=== PATIENT | female | born 1935 | race Caucasian/White ===

== ENCOUNTER 2016-06-21 15:59 | Emergency (ER) | payer OTHER, MEDICAID ==
[2016-05-10 14:12] VITALS: Ht 165.1 cm; Wt 72.6 kg
[~2016-06-21] VITALS: Ht 165.1 cm; Wt 72.6 kg
[~2016-06-21 15:59] MED LIST: CARV3.1246 PO; DIPH25CA83 PO; DULO60CA41 PO; FOLI-59 PO; GABA-531 PO; HYDR50TA3 PO; LETR2.5T3 PO; LEVO75TA7 PO; LISI-600 PO; LOP600 PO; MEMA5TAB PO; OSEL75CA PO; POTA10TA79 PO; SERT50TA12 PO
[2016-06-21 16:00] VITALS: BP 156/90; PULSE 79; RESP 19; TEMP 98.2; O2SAT 95
[2016-06-21] MEDS ORDERED: ACET-2165 PO (16:11)
[2016-06-21 16:44] LABS: BASOPHILS % (AUTO) 0.8 % (0.0-2.0); EOSINOPHILS # (AUTO) 0.2 K/uL (0.0-0.4); EOSINOPHILS % (AUTO) 3.6 % (0.0-4.0); HEMATOCRIT 38.3 % (36-48); LYMPHOCYTES # (AUTO) 0.8 K/uL (1.0-5.5); LYMPHOCYTES % (AUTO) 15.8 % (20.5-51.5); MEAN CORPUSCULAR HEMOGLOBIN 30 pg (27-31); MEAN CORPUSCULAR HGB CONC 34 % (32-36); MEAN CORPUSCULAR VOLUME 88 fL (79.0-98.0); MONOCYTES # (AUTO) 0.7 K/uL (0.0-1.0); MONOCYTES % (AUTO) 13.2 % (1.7-9.3); NEUTROPHILS # (AUTO) 3.5 K/uL (1.8-7.7); NEUTROPHILS % (AUTO) 66.6 % (40.0-70.0); PLATELET COUNT (AUTO) 202 K/uL (130-430); RED BLOOD CELL COUNT(AUTO) 4.36 MIL/uL (4.2-6.2); RED CELL DISTRIBUTION WIDTH 14.1 % (9.0-15.0); WHITE BLOOD COUNT (AUTO) 5.2 K/uL (4.8-10.8)
[2016-06-21 16:50] LABS: ANION GAP 8 (5-15); CALCIUM 9.7 mg/dL (8.4-11.0); CHLORIDE 104 mmol/L (98-107); CREATININE 1.02 mg/dL (0.55-1.30); GLUCOSE 95 mg/dL (70-99); POTASSIUM 3.9 mmol/L (3.5-5.1); SODIUM SERUM 141 mmol/L (136-145); UREA NITROGEN, BLOOD 36 mg/dL (8-21)
[2016-06-21 16:55] LABS: ALANINE AMINOTRANSFERASE 24 U/L (12-78); ALBUMIN 4.2 g/dL (3.4-4.8); ASPARTATE AMINOTRANSFERASE 18 U/L (10-37); TOTAL BILIRUBIN 0.5 mg/dL (0.0-1.0); TOTAL PROTEIN, SERUM 8.3 g/dL (6.4-8.3)
[2016-06-21 17:25] VITALS: BP 133/78; PULSE 72; RESP 16; TEMP 98.1; O2SAT 96
== END 2016-06-21 17:25 | disposition home or self-care (01) ==
LOC: SED 15:59
DX: R07.9 Chest pain, unspecified (principal); I10 Essential (primary) hypertension; C50.919 Malignant neoplasm of unspecified site of unspecified female breast; Z79.899 Other long term (current) drug therapy; Z86.59 Personal history of other mental and behavioral disorders
CPT/HCPCS: 36415; 80053; 83880; 84484; 85025; 93005; 99285

== ENCOUNTER 2019-05-09 09:18 | Emergency (ER) | payer OTHER, MEDICAID ==
[~2019-05-09] VITALS: Ht 172.7 cm; Wt 72.6 kg
[~2019-05-09 09:18] MED LIST changes: +ACET-2165 PO; -DIPH25CA83 PO; +FEM2.5 PO; -HYDR50TA3 PO; -LETR2.5T3 PO; -OSEL75CA PO; +POTA10TA11 PO; -POTA10TA79 PO
--- NOTE | 2019-05-09 09:18 | NUR ---
Patient to ER bed 2 to gown for evaluation. Side rails up. Assumed care.
[2019-05-09 09:20] VITALS: BP_SYST 134
--- NOTE | 2019-05-09 09:20 | NUR ---
Patient transported to radiology via hospital bed, accompanied by radiology specialist.
--- NOTE | 2019-05-09 09:25 | NUR ---
Returns to ER department from radiology. Placed on rehabilitation consultant, blood pressure machine and pulse oximeter.
--- NOTE | 2019-05-09 09:30 | NUR ---
Patient brought in by EMS s/p mechanical fall. No KO. Patient AAOx4, states that she was getting up from bed and slipped on the rug, causing her to lose her balance and hit her head on the dresser. Patient does not remember how long she was down for, but states that a nurse happened to walk by her room and found her. Bruising noted under left eye and large bump above right eye. Patient has history of breast cancer and hysterectomy. Patient denies any pain or SOB. No signs or symptoms of acute distress noted. Respirations even and unlabored.
--- NOTE | 2019-05-09 09:59 | NUR ---
ER Dr. Callahan at bedside examining patient.
--- NOTE | 2019-05-09 10:15 | NUR ---
Assisted patient to use bedpan.
--- NOTE | 2019-05-09 11:42 | NUR ---
Patient resting in bed, denies any SOB or pain. No signs or symptoms of acute distress noted.
[2019-05-09 12:17] VITALS: BP_SYST 141
--- NOTE | 2019-05-09 12:17 | NUR ---
Patient given written and verbal discharge instructions and verbalizes understanding. ER MD discussed with patient the results and treatment provided. Patient in stable condition. ID arm band removed. Rx of Naprosyn given. Patient educated on pain management and to follow up with PMD. Pain Scale 0/10. Opportunity for questions provided and answered. Medication side effect fact sheet provided.
== END 2019-05-09 12:17 | disposition home or self-care (01) ==
LOC: SED 09:18
DX: S05.12XA Contusion of eyeball and orbital tissues, left eye, initial encounter (principal); I10 Essential (primary) hypertension; Z79.899 Other long term (current) drug therapy; W01.10XA Fall on same level from slipping, tripping and stumbling with subsequent striking against unspecified object, initial encounter; Y93.89 Activity, other specified; Y92.89 Other specified places as the place of occurrence of the external cause; Y99.8 Other external cause status
CPT/HCPCS: 70450-TC; 99284

== ENCOUNTER 2020-10-08 22:57 | Inpatient (IN) | payer OTHER, MEDICAID, SELFPAY ==
[~2020-10-08] VITALS: Ht 172.7 cm; Wt 59.4 kg
[~2020-10-08 22:57] MED LIST changes: -ACET-2165 PO; +ACET-2634 PO; +ATOR20TA64 PO; +CARV12.548 PO; -CARV3.1246 PO; +CAT.1 PO; +DIA250 PO; +DIVA-74 PO; +DONE10TA44 PO; +FERR-69 PO; -FOLI-59 PO; -GABA-531 PO; -LISI-600 PO; +LISI20TA30 PO; -LOP600 PO; +MEMA14CA5 PO; -MEMA5TAB PO; +MULT-1164 PO; +NEOM3.5O10 LEFT EYE; +ONDA4TAB5 PO; -POTA10TA11 PO; +SER100 PO; +SERT-436 PO; -SERT50TA12 PO; +TIMO5DRO15 LEFT EYE; +XALEYE LEFT EYE
[2020-10-08 23:05] VITALS: BP_SYST 153
[2020-10-09 00:22] LABS: BASOPHILS % (AUTO) 0.7 % (0.0-2.0); EOSINOPHILS # (AUTO) 0.2 K/uL (0.0-0.4); EOSINOPHILS % (AUTO) 3.1 % (0.0-4.0); HEMATOCRIT 37.3 % (36-48); HEMOGLOBIN 12.4 g/dL (12.0-16.0); LYMPHOCYTES % (AUTO) 19.6 % (20.5-51.5); MEAN CORPUSCULAR HEMOGLOBIN 31 pg (27-31); MEAN CORPUSCULAR HGB CONC 33 % (32-36); MEAN CORPUSCULAR VOLUME 93 fL (79.0-98.0); MONOCYTES # (AUTO) 0.5 K/uL (0.0-1.0); MONOCYTES % (AUTO) 10.4 % (1.7-9.3); NEUTROPHILS # (AUTO) 3.5 K/uL (1.8-7.7); NEUTROPHILS % (AUTO) 66.2 % (40.0-70.0); PLATELET COUNT (AUTO) 125 K/uL (130-430); RED BLOOD CELL COUNT(AUTO) 4.02 MIL/uL (4.2-6.2); RED CELL DISTRIBUTION WIDTH 13.6 % (9.0-15.0); WHITE BLOOD COUNT (AUTO) 5.3 K/uL (4.8-10.8)
[2020-10-09 00:41] LABS: ANION GAP 12 (5-15); CALCIUM 9.3 mg/dL (8.4-11.0); CHLORIDE 111 mmol/L (98-107); GLUCOSE 113 mg/dL (70-99); SODIUM SERUM 145 mmol/L (136-145); UREA NITROGEN, BLOOD 17 mg/dL (8-21)
[2020-10-09] MEDS ORDERED: POTASSIUM CHLORIDE 20 MEQ TAB.PRT.SR ONE (00:51)
[2020-10-09 00:54] LABS: ALANINE AMINOTRANSFERASE 20 U/L (12-78); ALBUMIN 3.6 g/dL (3.4-4.8); ASPARTATE AMINOTRANSFERASE 12 U/L (10-37); TOTAL BILIRUBIN 0.2 mg/dL (0.0-1.0)
[2020-10-09 00:55] LABS: POTASSIUM 2.9 mmol/L (3.5-5.1)
[2020-10-09] MEDS ORDERED: POTASSIUM CHLORIDE 20 MEQ TAB.PRT.SR PO ONE (01:00)
[2020-10-09 01:07] LABS: BILIRUBIN,URINE NEGATIVE (NEGATIVE); BLOOD, URINE NEGATIVE (NEGATIVE); CLARITY/URINE SL CLOUDY (CLEAR); COLOR,URINE YELLOW (YELLOW); GLUCOSE,URINE NEGATIVE (NEGATIVE); KETONES,URINE NEGATIVE (NEGATIVE); LEUKOCYTE ESTERASE ,URINE NEGATIVE (NEGATIVE); NITRITE, URINE NEGATIVE (NEGATIVE); PROTEIN URINE NEGATIVE (NEGATIVE)
[2020-10-09] MEDS ORDERED: SERT-131 PO (03:34)
[2020-10-09] MEDS ORDERED: QUET400T54 PO (03:34)
[2020-10-09] MEDS ORDERED: CHOL500013 PO (03:34)
[2020-10-09] MEDS ORDERED: DOCU-156 PO (03:34)
[2020-10-09] MEDS ORDERED: OMEP1CAP32 PO (03:34)
[2020-10-09] MEDS ORDERED: hydrALAZINE HCL 20 MG/ML VIAL ONE (03:43)
[2020-10-09] MEDS ORDERED: hydrALAZINE HCL 20 MG/ML VIAL IVP ONE (03:45)
[2020-10-09 05:15] VITALS: BP_SYST 153
[2020-10-09 07:53] VITALS: BP_SYST 179
[2020-10-09] MEDS ORDERED: cloNIDine HCL 0.1 MG TABLET PO PRN (09:30)
[2020-10-09] MEDS ORDERED: DULoxetine HCL 30 MG CAPSULE.DR (CYMBALTA) PO ONE (09:30)
[2020-10-09] MEDS ORDERED: CARVEDILOL 12.5 MG TABLET (COREG) PO ONE (09:30)
[2020-10-09] MEDS ORDERED: SERTRALINE HCL 50 MG TABLET PO ONE (09:30)
[2020-10-09] MEDS ORDERED: ACETAMINOPHEN 500 MG TABLET PO PRN (09:30)
[2020-10-09] MEDS ORDERED: MULTIVITS,CA,MINERALS/IRON/FA 1 TABLET PO ONE (09:30)
[2020-10-09] MEDS ORDERED: DOCUSATE SODIUM 100 MG CAPSULE PO PRN (09:30)
[2020-10-09] MEDS ORDERED: ONDANSETRON 4 MG ODT TAB PO PRN (09:30)
[2020-10-09] MEDS ORDERED: LEVOTHYROXINE SODIUM 0.075 MG TABLET PO ONE (09:30)
[2020-10-09] MEDS ORDERED: MEMANTINE HCL 5 MG TABLET PO ONE (09:45)
[2020-10-09] MEDS ORDERED: LORazepam 2 MG/ML VIAL IVP PRN (09:45)
[2020-10-09] MEDS ORDERED: acetaZOLAMIDE 250 MG TABLET (DIAMOX) PO ONE (09:45)
[2020-10-09] MEDS ORDERED: FERROUS SULFATE 325 MG TABLET.DR PO ONE (09:45)
[2020-10-09] MEDS ORDERED: PANTOPRAZOLE SODIUM 40 MG TAB PO ONE (10:00)
[2020-10-09] MEDS: BACITRACIN OP SCH ×6 (10:00→22:00)
[2020-10-09] MEDS: NEOMYCIN OP SCH ×6 (10:00→22:00)
[2020-10-09] MEDS: HYDROCORTISONE OP SCH ×6 (10:00→22:00)
[2020-10-09] MEDS: POLYMYXIN B OP SCH ×6 (10:00→22:00)
[2020-10-09 11:00] VITALS: BP_SYST 160
[2020-10-09 12:14] VITALS: BP_SYST 124
[2020-10-09] MEDS: LETROZOLE 2.5 MG TABLET (FEMARA) PO SCH (12:38)
[2020-10-09] MEDS: LATANOPROST 2.5 ML DROPS (XALATAN) LEFT EYE SCH (12:40)
[2020-10-09] MEDS: TIMOLOL MALEATE 0.5% OPHTHALMIC DROPS 5 ML LEFT EYE SCH ×2 (12:41→21:07)
[2020-10-09] MEDS: acetaZOLAMIDE 250 MG TABLET (DIAMOX) PO SCH ×4 (13:00→22:45)
[2020-10-09 15:26] VITALS: BP_SYST 104
[2020-10-09] MEDS: FERROUS SULFATE 325 MG TABLET.DR PO SCH ×2 (17:25→20:58)
[2020-10-09 20:00] VITALS: BP_SYST 102
[2020-10-09] MEDS: QUEtiapine FUMARATE 25 MG TABLET PO SCH (20:55)
[2020-10-09] MEDS: DONEPEZIL HCL 5 MG TABLET (ARICEPT) PO SCH (20:58)
[2020-10-09] MEDS: ATORVASTATIN 20 MG TABLET PO SCH (20:58)
[2020-10-09] MEDS: DULoxetine HCL 30 MG CAPSULE.DR (CYMBALTA) PO SCH (20:59)
[2020-10-09] MEDS: MEMANTINE HCL 5 MG TABLET PO SCH (20:59)
[2020-10-09] MEDS: DIVALPROEX SODIUM 250 MG TABLET(DEPAKOTE) PO SCH (20:59)
[2020-10-09] MEDS: CARVEDILOL 12.5 MG TABLET (COREG) PO SCH (21:00)
[2020-10-09] MEDS: lisinopriL 20 MG TABLET PO SCH (21:00)
[2020-10-10] VITALS (7 sets, daily range): BP systolic 82–104
[2020-10-10] MEDS: NEOMYCIN OP SCH ×12 (02:00→22:00)
[2020-10-10] MEDS: HYDROCORTISONE OP SCH ×12 (02:00→22:00)
[2020-10-10] MEDS: POLYMYXIN B OP SCH ×12 (02:00→22:00)
[2020-10-10] MEDS: BACITRACIN OP SCH ×12 (02:00→22:00)
[2020-10-10] MEDS ORDERED: NS 500 ML IV ONE (04:45)
[2020-10-10] MEDS: LEVOTHYROXINE SODIUM 0.075 MG TABLET PO SCH (06:56)
[2020-10-10 06:58] LABS: ANION GAP 12 (5-15); CHLORIDE 111 mmol/L (98-107); CREATININE 1.16 mg/dL (0.55-1.30); GLUCOSE 83 mg/dL (70-99); POTASSIUM 3.5 mmol/L (3.5-5.1); SODIUM SERUM 144 mmol/L (136-145); UREA NITROGEN, BLOOD 23 mg/dL (8-21)
[2020-10-10 07:18] LABS: BASOPHILS % (AUTO) 0.7 % (0.0-2.0); EOSINOPHILS # (AUTO) 0.1 K/uL (0.0-0.4); EOSINOPHILS % (AUTO) 2.8 % (0.0-4.0); HEMATOCRIT 33.6 % (36-48); HEMOGLOBIN 10.9 g/dL (12.0-16.0); LYMPHOCYTES # (AUTO) 1.1 K/uL (1.0-5.5); LYMPHOCYTES % (AUTO) 24.3 % (20.5-51.5); MEAN CORPUSCULAR HEMOGLOBIN 31 pg (27-31); MEAN CORPUSCULAR HGB CONC 32 % (32-36); MEAN CORPUSCULAR VOLUME 95 fL (79.0-98.0); MONOCYTES # (AUTO) 0.6 K/uL (0.0-1.0); MONOCYTES % (AUTO) 12.5 % (1.7-9.3); NEUTROPHILS # (AUTO) 2.7 K/uL (1.8-7.7); NEUTROPHILS % (AUTO) 59.7 % (40.0-70.0); PLATELET COUNT (AUTO) 110 K/uL (130-430); RED BLOOD CELL COUNT(AUTO) 3.53 MIL/uL (4.2-6.2); RED CELL DISTRIBUTION WIDTH 13.8 % (9.0-15.0); WHITE BLOOD COUNT (AUTO) 4.6 K/uL (4.8-10.8)
[2020-10-10] MEDS: CARVEDILOL 12.5 MG TABLET (COREG) PO SCH ×2 (09:00→22:19)
[2020-10-10] MEDS: SERTRALINE HCL 50 MG TABLET PO SCH (09:31)
[2020-10-10] MEDS: MULTIVITS,CA,MINERALS/IRON/FA 1 TABLET PO SCH (09:31)
[2020-10-10] MEDS: DULoxetine HCL 30 MG CAPSULE.DR (CYMBALTA) PO SCH ×2 (09:32→22:17)
[2020-10-10] MEDS: FERROUS SULFATE 325 MG TABLET.DR PO SCH ×3 (09:32→22:17)
[2020-10-10] MEDS: MEMANTINE HCL 5 MG TABLET PO SCH ×2 (09:33→22:16)
[2020-10-10] MEDS: acetaZOLAMIDE 250 MG TABLET (DIAMOX) PO SCH ×4 (09:33→22:17)
[2020-10-10] MEDS: PANTOPRAZOLE SODIUM 40 MG TAB PO SCH (09:33)
[2020-10-10] MEDS: TIMOLOL MALEATE 0.5% OPHTHALMIC DROPS 5 ML LEFT EYE SCH ×2 (09:34→22:18)
[2020-10-10] MEDS: LATANOPROST 2.5 ML DROPS (XALATAN) LEFT EYE SCH (09:34)
[2020-10-10] MEDS: LETROZOLE 2.5 MG TABLET (FEMARA) PO SCH (09:42)
[2020-10-10] MEDS: DONEPEZIL HCL 5 MG TABLET (ARICEPT) PO SCH (22:16)
[2020-10-10] MEDS: QUEtiapine FUMARATE 25 MG TABLET PO SCH (22:16)
[2020-10-10] MEDS: DIVALPROEX SODIUM 250 MG TABLET(DEPAKOTE) PO SCH (22:16)
[2020-10-10] MEDS: lisinopriL 20 MG TABLET PO SCH (22:17)
[2020-10-10] MEDS: ATORVASTATIN 20 MG TABLET PO SCH (22:17)
[2020-10-11] VITALS: BP_SYST 96
[2020-10-11] MEDS: BACITRACIN OP SCH ×12 (02:00→21:34)
[2020-10-11] MEDS: NEOMYCIN OP SCH ×12 (02:00→21:34)
[2020-10-11] MEDS: POLYMYXIN B OP SCH ×12 (02:00→21:34)
[2020-10-11] MEDS: HYDROCORTISONE OP SCH ×12 (02:00→21:34)
[2020-10-11 06:18] LABS: BASOPHILS % (AUTO) 0.6 % (0.0-2.0); EOSINOPHILS # (AUTO) 0.2 K/uL (0.0-0.4); EOSINOPHILS % (AUTO) 3.3 % (0.0-4.0); HEMATOCRIT 35.7 % (36-48); HEMOGLOBIN 11.6 g/dL (12.0-16.0); LYMPHOCYTES # (AUTO) 1.2 K/uL (1.0-5.5); MEAN CORPUSCULAR HEMOGLOBIN 31 pg (27-31); MEAN CORPUSCULAR HGB CONC 32 % (32-36); MEAN CORPUSCULAR VOLUME 95 fL (79.0-98.0); MONOCYTES # (AUTO) 0.5 K/uL (0.0-1.0); MONOCYTES % (AUTO) 11.1 % (1.7-9.3); NEUTROPHILS # (AUTO) 2.7 K/uL (1.8-7.7); PLATELET COUNT (AUTO) 106 K/uL (130-430); RED BLOOD CELL COUNT(AUTO) 3.77 MIL/uL (4.2-6.2); RED CELL DISTRIBUTION WIDTH 13.8 % (9.0-15.0); WHITE BLOOD COUNT (AUTO) 4.5 K/uL (4.8-10.8)
[2020-10-11] MEDS: LEVOTHYROXINE SODIUM 0.075 MG TABLET PO SCH (06:27)
[2020-10-11 06:51] LABS: ANION GAP 14 (5-15); CALCIUM 8.7 mg/dL (8.4-11.0); CHLORIDE 112 mmol/L (98-107); CREATININE 0.98 mg/dL (0.55-1.30); GLUCOSE 90 mg/dL (70-99); POTASSIUM 3.5 mmol/L (3.5-5.1); SODIUM SERUM 144 mmol/L (136-145); UREA NITROGEN, BLOOD 34 mg/dL (8-21)
[2020-10-11 08:00] VITALS: BP_SYST 90
[2020-10-11] MEDS: TIMOLOL MALEATE 0.5% OPHTHALMIC DROPS 5 ML LEFT EYE SCH ×2 (08:59→21:34)
[2020-10-11] MEDS: LETROZOLE 2.5 MG TABLET (FEMARA) PO SCH (08:59)
[2020-10-11] MEDS: LATANOPROST 2.5 ML DROPS (XALATAN) LEFT EYE SCH (08:59)
[2020-10-11] MEDS: MEMANTINE HCL 5 MG TABLET PO SCH ×2 (09:00→21:34)
[2020-10-11] MEDS: CARVEDILOL 12.5 MG TABLET (COREG) PO SCH ×2 (09:00→21:00)
[2020-10-11] MEDS: SERTRALINE HCL 50 MG TABLET PO SCH (09:01)
[2020-10-11] MEDS: MULTIVITS,CA,MINERALS/IRON/FA 1 TABLET PO SCH (09:01)
[2020-10-11] MEDS: DULoxetine HCL 30 MG CAPSULE.DR (CYMBALTA) PO SCH ×2 (09:04→21:33)
[2020-10-11] MEDS: acetaZOLAMIDE 250 MG TABLET (DIAMOX) PO SCH ×4 (09:05→21:33)
[2020-10-11] MEDS: PANTOPRAZOLE SODIUM 40 MG TAB PO SCH (09:05)
[2020-10-11] MEDS: FERROUS SULFATE 325 MG TABLET.DR PO SCH ×3 (09:06→21:30)
[2020-10-11 12:45] VITALS: BP_SYST 88
[2020-10-11 17:39] VITALS: BP_SYST 95
[2020-10-11 20:00] VITALS: BP_SYST 95
[2020-10-11] MEDS: lisinopriL 20 MG TABLET PO SCH (21:00)
[2020-10-11] MEDS: ATORVASTATIN 20 MG TABLET PO SCH (21:30)
[2020-10-11] MEDS: DONEPEZIL HCL 5 MG TABLET (ARICEPT) PO SCH (21:30)
[2020-10-11] MEDS: DIVALPROEX SODIUM 250 MG TABLET(DEPAKOTE) PO SCH (21:31)
[2020-10-11] MEDS: QUEtiapine FUMARATE 25 MG TABLET PO SCH (21:33)
[2020-10-12] VITALS: BP_SYST 96
[2020-10-12] MEDS: POLYMYXIN B OP SCH ×9 (02:00→16:00)
[2020-10-12] MEDS: NEOMYCIN OP SCH ×9 (02:00→16:00)
[2020-10-12] MEDS: BACITRACIN OP SCH ×9 (02:00→16:00)
[2020-10-12] MEDS: HYDROCORTISONE OP SCH ×9 (02:00→16:00)
[2020-10-12] MEDS: LEVOTHYROXINE SODIUM 0.075 MG TABLET PO SCH (06:39)
[2020-10-12] MEDS: acetaZOLAMIDE 250 MG TABLET (DIAMOX) PO SCH ×3 (08:40→21:06)
[2020-10-12] MEDS: MULTIVITS,CA,MINERALS/IRON/FA 1 TABLET PO SCH (08:40)
[2020-10-12] MEDS: LETROZOLE 2.5 MG TABLET (FEMARA) PO SCH (08:40)
[2020-10-12] MEDS: SERTRALINE HCL 50 MG TABLET PO SCH (08:40)
[2020-10-12] MEDS: MEMANTINE HCL 5 MG TABLET PO SCH ×2 (08:41→21:04)
[2020-10-12] MEDS: CARVEDILOL 12.5 MG TABLET (COREG) PO SCH ×2 (08:42→21:05)
[2020-10-12] MEDS: DULoxetine HCL 30 MG CAPSULE.DR (CYMBALTA) PO SCH ×2 (08:42→21:05)
[2020-10-12] MEDS: FERROUS SULFATE 325 MG TABLET.DR PO SCH ×3 (08:42→21:05)
[2020-10-12] MEDS: LATANOPROST 2.5 ML DROPS (XALATAN) LEFT EYE SCH (08:43)
[2020-10-12] MEDS: TIMOLOL MALEATE 0.5% OPHTHALMIC DROPS 5 ML LEFT EYE SCH ×2 (08:44→21:07)
[2020-10-12] MEDS: PANTOPRAZOLE SODIUM 40 MG TAB PO SCH (09:00)
[2020-10-12 10:18] VITALS: BP_SYST 119
[2020-10-12 11:35] VITALS: BP_SYST 106
[2020-10-12 15:43] VITALS: BP_SYST 97
[2020-10-12 19:10] VITALS: BP_SYST 120
[2020-10-12 19:26] VITALS: BP_SYST 120
[2020-10-12] MEDS: DONEPEZIL HCL 5 MG TABLET (ARICEPT) PO SCH (21:04)
[2020-10-12] MEDS: DIVALPROEX SODIUM 250 MG TABLET(DEPAKOTE) PO SCH (21:04)
[2020-10-12] MEDS: QUEtiapine FUMARATE 25 MG TABLET PO SCH (21:06)
[2020-10-12] MEDS: lisinopriL 20 MG TABLET PO SCH (21:06)
[2020-10-12] MEDS: ATORVASTATIN 20 MG TABLET PO SCH (21:06)
[2020-10-13] VITALS: BP_SYST 112
[2020-10-13] MEDS: LEVOTHYROXINE SODIUM 0.075 MG TABLET PO SCH (06:14)
[2020-10-13 08:00] VITALS: BP_SYST 98
[2020-10-13] MEDS: HYDROCORTISONE OP SCH ×3 (08:00→12:00)
[2020-10-13] MEDS: POLYMYXIN B OP SCH ×3 (08:00→12:00)
[2020-10-13] MEDS: NEOMYCIN OP SCH ×3 (08:00→12:00)
[2020-10-13] MEDS: BACITRACIN OP SCH ×3 (08:00→12:00)
[2020-10-13] MEDS: CARVEDILOL 12.5 MG TABLET (COREG) PO SCH (09:00)
[2020-10-13] MEDS: MULTIVITS,CA,MINERALS/IRON/FA 1 TABLET PO SCH (10:19)
[2020-10-13] MEDS: DULoxetine HCL 30 MG CAPSULE.DR (CYMBALTA) PO SCH (10:19)
[2020-10-13] MEDS: MEMANTINE HCL 5 MG TABLET PO SCH (10:19)
[2020-10-13] MEDS: FERROUS SULFATE 325 MG TABLET.DR PO SCH (10:19)
[2020-10-13] MEDS: PANTOPRAZOLE SODIUM 40 MG TAB PO SCH (10:19)
[2020-10-13] MEDS: LATANOPROST 2.5 ML DROPS (XALATAN) LEFT EYE SCH (10:20)
[2020-10-13] MEDS: SERTRALINE HCL 50 MG TABLET PO SCH (10:20)
[2020-10-13] MEDS: TIMOLOL MALEATE 0.5% OPHTHALMIC DROPS 5 ML LEFT EYE SCH (10:20)
[2020-10-13] MEDS: acetaZOLAMIDE 250 MG TABLET (DIAMOX) PO SCH (10:22)
[2020-10-13] MEDS: LETROZOLE 2.5 MG TABLET (FEMARA) PO SCH (10:25)
[2020-10-13 12:20] VITALS: BP_SYST 88
[2020-10-13 13:23] VITALS: BP_SYST 98
== END 2020-10-13 14:15 | DRG 641 ==
LOC: SED 22:57 → STU 10-09 02:26 → SMU 10-09 09:51
PROVIDERS: ADMIT Internal Medicine; ATTEND Internal Medicine
DX: E87.6 Hypokalemia (principal); F03.90 Unspecified dementia, unspecified severity, without behavioral disturbance, psychotic disturbance, mood disturbance, and anxiety; E03.9 Hypothyroidism, unspecified; E78.5 Hyperlipidemia, unspecified; F29 Unspecified psychosis not due to a substance or known physiological condition; Z20.822 Contact with and (suspected) exposure to COVID-19; Z78.1 Physical restraint status; Z79.890 Hormone replacement therapy; Z79.899 Other long term (current) drug therapy
CPT/HCPCS: 36415; 80048; 80053; 81003; 85025; 87081; 96374; 97110-GP; 97163; 97530-GP; 99285; J0360; J2060

== ENCOUNTER 2021-02-22 09:36 | Emergency (ER) | payer OTHER, MEDICAID ==
[~2021-02-22] VITALS: Ht 167.6 cm; Wt 67.6 kg
[~2021-02-22 09:36] MED LIST changes: +CHOL500013 PO; +DOCU-156 PO; +OMEP1CAP32 PO; +QUET400T54 PO; -SER100 PO; +SERT-131 PO; -SERT-436 PO
--- NOTE | 2021-02-22 09:40 | NUR ---
Placed in room 5 . Placed on dry house attendant, blood pressure machine and pulse oximeter. To gown for exam. Side rails up. Report given to MINNA Gonzalez.
[2021-02-22 09:43] VITALS: BP_SYST 127
--- NOTE | 2021-02-22 09:45 | NUR ---
Pt BIB ambulance from [facility] for left forearm, left hand, and right knee redness. Pt fell last night and had redness since the fall. Pt denies that she fell but she has dementia so it is unclear. Pt denies having any pain currently.
--- NOTE | 2021-02-22 10:45 | NUR ---
Dr. Godfrey at bedside to assess.
--- NOTE | 2021-02-22 10:55 | NUR ---
Portable X-rays are being done at bedside.
--- NOTE | 2021-02-22 12:30 | NUR ---
Pt to be discharged, called [facility] for transportation.
--- NOTE | 2021-02-22 14:04 | NUR ---
Spoke with Olga (sr. social media & mobile manager) at [facility]. Transport needs to [facility] up with [facility]. [facility] and confirmed hand picker for 1600.
--- NOTE | 2021-02-22 16:55 | NUR ---
Spoke with [facility] for cause of picket labor union delay. 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
--- NOTE | 2021-02-22 17:55 | NUR ---
Dinner tray provided. Still waiting for transport.
[2021-02-22 18:10] VITALS: BP_SYST 152
--- NOTE | 2021-02-22 18:10 | NUR ---
Patient given written and verbal discharge instructions and verbalizes understanding. Dr. Epifanio ZIMMER MD discussed with patient the results and treatment provided. Patient in stable condition. ID arm band removed. Patient educated on pain management and to follow up with PMD. Pain Scale 0/10. Opportunity for questions provided and answered.
== END 2021-02-22 18:10 ==
LOC: SED 09:36
DX: M79.632 Pain in left forearm (principal); M25.561 Pain in right knee; F03.90 Unspecified dementia, unspecified severity, without behavioral disturbance, psychotic disturbance, mood disturbance, and anxiety; Z79.899 Other long term (current) drug therapy; W18.39XA Other fall on same level, initial encounter; Y93.89 Activity, other specified; Y92.89 Other specified places as the place of occurrence of the external cause; Y99.8 Other external cause status
CPT/HCPCS: 73090; 73560-TC; 93005; 99284

== ENCOUNTER 2021-10-22 22:45 | Inpatient (IN) | payer OTHER, MEDICAID ==
[~2021-10-22] VITALS: Ht 172.7 cm; Wt 71.7 kg
[~2021-10-22 22:45] MED LIST changes: +AMOX-423 PO; -DIA250 PO; +DOXY-244 PO; -DULO60CA41 PO; +DULO60CA42 PO; +FAMO20TA8 PO; -NEOM3.5O10 LEFT EYE; -OMEP1CAP32 PO; -ONDA4TAB5 PO; +POTA-197 PO; +QUET200T PO; -QUET400T54 PO; +QUET50TA PO; -SERT-131 PO; +TRI48 PO
[2021-10-22 23:08] VITALS: BP_SYST 104
[2021-10-23 00:23] LABS: BASOPHILS % (AUTO) 1.3 % (0.0-2.0); EOSINOPHILS # (AUTO) 0.2 K/uL (0.0-0.4); EOSINOPHILS % (AUTO) 7.1 % (0.0-4.0); HEMATOCRIT 35.1 % (36-48); HEMOGLOBIN 11.8 g/dL (12.0-16.0); LYMPHOCYTES # (AUTO) 0.9 K/uL (1.0-5.5); LYMPHOCYTES % (AUTO) 31.2 % (20.5-51.5); MEAN CORPUSCULAR HEMOGLOBIN 30 pg (27-31); MEAN CORPUSCULAR HGB CONC 34 % (32-36); MEAN CORPUSCULAR VOLUME 89 fL (79.0-98.0); MONOCYTES # (AUTO) 0.5 K/uL (0.0-1.0); MONOCYTES % (AUTO) 16.6 % (1.7-9.3); NEUTROPHILS # (AUTO) 1.3 K/uL (1.8-7.7); NEUTROPHILS % (AUTO) 43.8 % (40.0-70.0); PLATELET COUNT (AUTO) 115 K/uL (130-430); RED BLOOD CELL COUNT(AUTO) 3.95 MIL/uL (4.2-6.2); RED CELL DISTRIBUTION WIDTH 15.1 % (9.0-15.0)
[2021-10-23 00:35] LABS: ANION GAP 8 (5-15); CALCIUM 8.8 mg/dL (8.4-11.0); CHLORIDE 107 mmol/L (98-107); CREATININE 1.36 mg/dL (0.55-1.30); GLUCOSE 95 mg/dL (70-99); SODIUM SERUM 142 mmol/L (136-145); UREA NITROGEN, BLOOD 37 mg/dL (8-21)
[2021-10-23 00:44] LABS: ALANINE AMINOTRANSFERASE 11 U/L (12-78); ALBUMIN 2.9 g/dL (3.4-4.8); ASPARTATE AMINOTRANSFERASE 21 U/L (10-37); PROTHROMBIN TIME 10.4 SECS (9.5-12.5); TOTAL BILIRUBIN 0.3 mg/dL (0.0-1.0)
[2021-10-23] MEDS ORDERED: ASPIRIN 325 MG TABLET (ECOTRIN) PO ONE (01:00)
[2021-10-23] MEDS ORDERED: NACL 0.9% 1,000 ML IV ONE (01:00)
[2021-10-23] MEDS ORDERED: MULT-1294 PO (01:45)
[2021-10-23] MEDS ORDERED: LATA7.5D LEFT EYE (01:45)
[2021-10-23] MEDS ORDERED: DIVA125T2 PO (01:45)
[2021-10-23] MEDS ORDERED: DULO-77 PO (01:45)
[2021-10-23] MEDS ORDERED: LEVO500T20 PO (01:45)
[2021-10-23] MEDS ORDERED: QUET200T31 PO (01:45)
[2021-10-23] MEDS ORDERED: MEMA5TAB42 PO (01:45)
[2021-10-23] MEDS ORDERED: DOCU-192 PO (01:45)
[2021-10-23] MEDS ORDERED: FAMO-268 PO (01:45)
[2021-10-23] MEDS ORDERED: LIP20 PO (01:45)
[2021-10-23] MEDS ORDERED: LIS20 PO (01:45)
[2021-10-23] MEDS ORDERED: TIMO1DRO5 LEFT EYE (01:45)
[2021-10-23] MEDS ORDERED: FERR-31 PO (01:45)
[2021-10-23] MEDS ORDERED: CLON0.1T PO (01:45)
[2021-10-23] MEDS ORDERED: LETR2.5T6 PO (01:45)
[2021-10-23] MEDS ORDERED: DONE10TA4 PO (01:45)
[2021-10-23] MEDS ORDERED: TRI48 PO (01:45)
[2021-10-23] MEDS ORDERED: POTA20LI5 PO (01:45)
[2021-10-23] MEDS ORDERED: CHOL50009 PO (01:45)
[2021-10-23] MEDS ORDERED: QUET50TA24 PO (01:45)
[2021-10-23] MEDS ORDERED: PROM6.256 PO (01:45)
[2021-10-23] MEDS ORDERED: AMIN30LI2 PO (01:45)
[2021-10-23] MEDS ORDERED: ASCO500T20 PO (01:45)
[2021-10-23] MEDS ORDERED: LEVO75CA5 PO (01:45)
[2021-10-23] MEDS ORDERED: CARV12.548 PO (01:45)
[2021-10-23] MEDS ORDERED: ACET500C21 PO (01:45)
[2021-10-23] MEDS ORDERED: QUEtiapine FUMARATE 25 MG TABLET ONE (02:54)
[2021-10-23 04:13] LABS: BILIRUBIN,URINE NEGATIVE (NEGATIVE); BLOOD, URINE NEGATIVE (NEGATIVE); CLARITY/URINE CLEAR (CLEAR); COLOR,URINE YELLOW (YELLOW); GLUCOSE,URINE NEGATIVE (NEGATIVE); KETONES,URINE NEGATIVE (NEGATIVE); LEUKOCYTE ESTERASE ,URINE NEGATIVE (NEGATIVE); NITRITE, URINE NEGATIVE (NEGATIVE); PH,URINE 5.5 (5.0-8.0); PROTEIN URINE NEGATIVE (NEGATIVE); UROBILINOGEN,URINE 0.2 (0.2-1.0)
[2021-10-23 06:26] LABS: BASOPHILS % (AUTO) 0.6 % (0.0-2.0); EOSINOPHILS # (AUTO) 0.2 K/uL (0.0-0.4); EOSINOPHILS % (AUTO) 5.5 % (0.0-4.0); HEMATOCRIT 31.6 % (36-48); HEMOGLOBIN 10.8 g/dL (12.0-16.0); LYMPHOCYTES # (AUTO) 0.8 K/uL (1.0-5.5); LYMPHOCYTES % (AUTO) 25.8 % (20.5-51.5); MEAN CORPUSCULAR HEMOGLOBIN 30 pg (27-31); MEAN CORPUSCULAR HGB CONC 34 % (32-36); MEAN CORPUSCULAR VOLUME 89 fL (79.0-98.0); MONOCYTES # (AUTO) 0.5 K/uL (0.0-1.0); MONOCYTES % (AUTO) 14.7 % (1.7-9.3); NEUTROPHILS # (AUTO) 1.7 K/uL (1.8-7.7); PLATELET COUNT (AUTO) 103 K/uL (130-430); RED BLOOD CELL COUNT(AUTO) 3.55 MIL/uL (4.2-6.2); RED CELL DISTRIBUTION WIDTH 15.1 % (9.0-15.0); WHITE BLOOD COUNT (AUTO) 3.2 K/uL (4.8-10.8)
[2021-10-23] MEDS ORDERED: VANCOMYCIN HCL 1 GM/NS PREMIX 250 ML IV SCH (06:30)
[2021-10-23] MEDS ORDERED: PIPERACILLIN/TAZO 3.375/DEX-IS 50 ML IV ONE ×2 (06:30→10:00)
[2021-10-23] MEDS ORDERED: AZITHROMYCIN 500 MG in NS 250 ML IV ONE (06:30)
[2021-10-23 06:40] LABS: ANION GAP 8 (5-15); CALCIUM 7.7 mg/dL (8.4-11.0); CHLORIDE 109 mmol/L (98-107); CREATININE 1.21 mg/dL (0.55-1.30); GLUCOSE 88 mg/dL (70-99); POTASSIUM 4.3 mmol/L (3.5-5.1); SODIUM SERUM 143 mmol/L (136-145); UREA NITROGEN, BLOOD 34 mg/dL (8-21)
[2021-10-23 06:46] LABS: ALANINE AMINOTRANSFERASE 12 U/L (12-78); ALBUMIN 2.7 g/dL (3.4-4.8); ASPARTATE AMINOTRANSFERASE 18 U/L (10-37); TOTAL BILIRUBIN 0.2 mg/dL (0.0-1.0)
[2021-10-23 08:05] VITALS: BP_SYST 116
[2021-10-23 08:35] LABS: NEUTROPHILS % (AUTO) 53.4 % (40.0-70.0)
[2021-10-23] MEDS ORDERED: VANCOMYCIN HCL 1,000 MG in NS 250 ML IV ONE (10:30)
[2021-10-23] MEDS: AZITHROMYCIN 500 MG in NS 250 ML IV SCH (10:38)
[2021-10-23] MEDS ORDERED: PIPERACILLIN/TAZO 3.375/DEX-IS 50 ML IV SCH (12:00)
[2021-10-23 12:05] VITALS: BP_SYST 133
[2021-10-23 13:57] VITALS: BP_SYST 116
[2021-10-23 16:05] VITALS: BP_SYST 129
[2021-10-23 20:19] VITALS: BP_SYST 155
[2021-10-23] MEDS ORDERED: QUEtiapine FUMARATE 25 MG TABLET PO ONE (21:00)
[2021-10-24] MEDS ORDERED: cefTRIAXone 1 GM VIAL ONE (00:39)
[2021-10-24] MEDS: cefTRIAXone 1 GM in D5W 50 ML IV SCH ×2 (00:42→22:31)
[2021-10-24 02:03] VITALS: BP_SYST 137
[2021-10-24 06:53] LABS: BASOPHILS % (AUTO) 0.6 % (0.0-2.0); EOSINOPHILS # (AUTO) 0.2 K/uL (0.0-0.4); EOSINOPHILS % (AUTO) 6.2 % (0.0-4.0); HEMATOCRIT 34.7 % (36-48); HEMOGLOBIN 11.6 g/dL (12.0-16.0); LYMPHOCYTES # (AUTO) 0.7 K/uL (1.0-5.5); LYMPHOCYTES % (AUTO) 22.3 % (20.5-51.5); MEAN CORPUSCULAR HEMOGLOBIN 30 pg (27-31); MEAN CORPUSCULAR HGB CONC 34 % (32-36); MEAN CORPUSCULAR VOLUME 89 fL (79.0-98.0); MONOCYTES # (AUTO) 0.4 K/uL (0.0-1.0); MONOCYTES % (AUTO) 12.7 % (1.7-9.3); NEUTROPHILS # (AUTO) 1.7 K/uL (1.8-7.7); NEUTROPHILS % (AUTO) 58.2 % (40.0-70.0); PLATELET COUNT (AUTO) 104 K/uL (130-430); RED CELL DISTRIBUTION WIDTH 14.7 % (9.0-15.0)
[2021-10-24 07:35] LABS: ANION GAP 6 (5-15); CALCIUM 8.3 mg/dL (8.4-11.0); CHLORIDE 107 mmol/L (98-107); CREATININE 0.98 mg/dL (0.55-1.30); GLUCOSE 85 mg/dL (70-99); POTASSIUM 3.7 mmol/L (3.5-5.1); SODIUM SERUM 143 mmol/L (136-145); UREA NITROGEN, BLOOD 24 mg/dL (8-21)
[2021-10-24 08:00] VITALS: BP_SYST 152
[2021-10-24] MEDS: AZITHROMYCIN 500 MG in NS 250 ML IV SCH (11:28)
[2021-10-24 12:00] VITALS: BP_SYST 166
[2021-10-24 12:15] VITALS: BP_SYST 153
[2021-10-24 16:00] VITALS: BP_SYST 143
[2021-10-24 20:00] VITALS: BP_SYST 145
[2021-10-25] MEDS: DEXAMETHASONE SOD PHOSPHATE 10 MG/ML VIAL IVP SCH ×2 (01:08→23:57)
[2021-10-25] MEDS ORDERED: hydrALAZINE HCL 20 MG/ML VIAL IVP PRN (04:45)
[2021-10-25 06:03] LABS: BASOPHILS % (AUTO) 0.4 % (0.0-2.0); EOSINOPHILS # (AUTO) 0.1 K/uL (0.0-0.4); EOSINOPHILS % (AUTO) 1.6 % (0.0-4.0); HEMATOCRIT 38.1 % (36-48); HEMOGLOBIN 12.9 g/dL (12.0-16.0); LYMPHOCYTES # (AUTO) 0.5 K/uL (1.0-5.5); LYMPHOCYTES % (AUTO) 9.7 % (20.5-51.5); MEAN CORPUSCULAR HEMOGLOBIN 30 pg (27-31); MEAN CORPUSCULAR HGB CONC 34 % (32-36); MEAN CORPUSCULAR VOLUME 88 fL (79.0-98.0); MONOCYTES # (AUTO) 0.1 K/uL (0.0-1.0); MONOCYTES % (AUTO) 2.4 % (1.7-9.3); NEUTROPHILS # (AUTO) 4.1 K/uL (1.8-7.7); NEUTROPHILS % (AUTO) 85.9 % (40.0-70.0); PLATELET COUNT (AUTO) 116 K/uL (130-430); RED BLOOD CELL COUNT(AUTO) 4.34 MIL/uL (4.2-6.2); RED CELL DISTRIBUTION WIDTH 14.2 % (9.0-15.0); WHITE BLOOD COUNT (AUTO) 4.8 K/uL (4.8-10.8)
[2021-10-25 06:24] LABS: ANION GAP 7 (5-15); CALCIUM 8.7 mg/dL (8.4-11.0); CHLORIDE 103 mmol/L (98-107); GLUCOSE 132 mg/dL (70-99); POTASSIUM 3.6 mmol/L (3.5-5.1); SODIUM SERUM 138 mmol/L (136-145); UREA NITROGEN, BLOOD 17 mg/dL (8-21)
[2021-10-25 08:15] VITALS: BP_SYST 154
[2021-10-25] MEDS: amLODIPine BESYLATE 5 MG TABLET PO SCH (08:59)
[2021-10-25] MEDS: ENOXAPARIN SODIUM 40 MG/0.4 ML SYRINGE SUBCUT SCH (09:00)
[2021-10-25 11:32] VITALS: BP_SYST 146
[2021-10-25] MEDS: AZITHROMYCIN 500 MG in NS 250 ML IV SCH (11:32)
[2021-10-25 16:03] VITALS: BP_SYST 130
[2021-10-25] MEDS: LORazepam 2 MG/ML VIAL IVP PRN (16:21)
[2021-10-25] MEDS: cefTRIAXone 1 GM in D5W 50 ML IV SCH (23:58)
[2021-10-26 00:29] VITALS: BP_SYST 131
[2021-10-26 07:01] LABS: ALANINE AMINOTRANSFERASE 12 U/L (12-78); ALBUMIN 3.3 g/dL (3.4-4.8); ANION GAP 9 (5-15); ASPARTATE AMINOTRANSFERASE 18 U/L (10-37); CALCIUM 8.9 mg/dL (8.4-11.0); CHLORIDE 103 mmol/L (98-107); CREATININE 0.89 mg/dL (0.55-1.30); GLUCOSE 149 mg/dL (70-99); POTASSIUM 3.5 mmol/L (3.5-5.1); SODIUM SERUM 137 mmol/L (136-145); TOTAL BILIRUBIN 0.4 mg/dL (0.0-1.0); UREA NITROGEN, BLOOD 29 mg/dL (8-21)
[2021-10-26 08:00] VITALS: BP_SYST 147
[2021-10-26] MEDS: amLODIPine BESYLATE 5 MG TABLET PO SCH (10:18)
[2021-10-26] MEDS: ENOXAPARIN SODIUM 40 MG/0.4 ML SYRINGE SUBCUT SCH (10:19)
[2021-10-26] MEDS: AZITHROMYCIN 500 MG in NS 250 ML IV SCH (10:19)
[2021-10-26 12:48] VITALS: BP_SYST 147
[2021-10-26] MEDS: LORazepam 2 MG/ML VIAL IVP PRN (16:17)
[2021-10-26] MEDS ORDERED: LORazepam 2 MG/ML VIAL IVP PRN (16:30)
[2021-10-26 16:35] VITALS: BP_SYST 135
[2021-10-26 19:43] VITALS: BP_SYST 149
[2021-10-26] MEDS: QUEtiapine FUMARATE 25 MG TABLET PO SCH (21:21)
[2021-10-26] MEDS: DIVALPROEX SODIUM 125 MG CAP.(DEPAKOTE SPRINKLE) PO SCH (21:21)
[2021-10-26] MEDS: DULoxetine HCL 30 MG CAPSULE.DR (CYMBALTA) PO SCH (21:22)
[2021-10-26] MEDS: MEMANTINE HCL 5 MG TABLET PO SCH (21:22)
[2021-10-26] MEDS: DONEPEZIL HCL 5 MG TABLET (ARICEPT) PO SCH (21:22)
[2021-10-26] MEDS: cefTRIAXone 1 GM in D5W 50 ML IV SCH (23:14)
[2021-10-26] MEDS: DEXAMETHASONE SOD PHOSPHATE 10 MG/ML VIAL IVP SCH (23:14)
[2021-10-27 00:13] VITALS: BP_SYST 135
[2021-10-27 05:58] LABS: BASOPHILS % (AUTO) 0.2 % (0.0-2.0); HEMATOCRIT 33.6 % (36-48); HEMOGLOBIN 11.3 g/dL (12.0-16.0); LYMPHOCYTES # (AUTO) 0.5 K/uL (1.0-5.5); LYMPHOCYTES % (AUTO) 8.2 % (20.5-51.5); MEAN CORPUSCULAR HEMOGLOBIN 30 pg (27-31); MEAN CORPUSCULAR HGB CONC 34 % (32-36); MEAN CORPUSCULAR VOLUME 88 fL (79.0-98.0); MONOCYTES # (AUTO) 0.3 K/uL (0.0-1.0); MONOCYTES % (AUTO) 4.8 % (1.7-9.3); NEUTROPHILS # (AUTO) 4.8 K/uL (1.8-7.7); NEUTROPHILS % (AUTO) 86.8 % (40.0-70.0); PLATELET COUNT (AUTO) 128 K/uL (130-430); RED BLOOD CELL COUNT(AUTO) 3.82 MIL/uL (4.2-6.2); RED CELL DISTRIBUTION WIDTH 14.5 % (9.0-15.0); WHITE BLOOD COUNT (AUTO) 5.5 K/uL (4.8-10.8)
[2021-10-27 06:26] LABS: ALANINE AMINOTRANSFERASE 10 U/L (12-78); ALBUMIN 3.1 g/dL (3.4-4.8); ANION GAP 7 (5-15); ASPARTATE AMINOTRANSFERASE 18 U/L (10-37); CALCIUM 8.4 mg/dL (8.4-11.0); CHLORIDE 108 mmol/L (98-107); CREATININE 0.87 mg/dL (0.55-1.30); GLUCOSE 145 mg/dL (70-99); POTASSIUM 3.7 mmol/L (3.5-5.1); SODIUM SERUM 145 mmol/L (136-145); TOTAL BILIRUBIN 0.2 mg/dL (0.0-1.0); UREA NITROGEN, BLOOD 39 mg/dL (8-21)
[2021-10-27 08:00] VITALS: BP_SYST 131
[2021-10-27] MEDS: ENOXAPARIN SODIUM 40 MG/0.4 ML SYRINGE SUBCUT SCH (09:20)
[2021-10-27] MEDS: QUEtiapine FUMARATE 100 MG TABLET PO SCH (09:21)
[2021-10-27] MEDS: amLODIPine BESYLATE 5 MG TABLET PO SCH (09:22)
[2021-10-27] MEDS: MEMANTINE HCL 5 MG TABLET PO SCH ×2 (09:22→21:21)
[2021-10-27] MEDS: DULoxetine HCL 30 MG CAPSULE.DR (CYMBALTA) PO SCH ×2 (09:22→21:21)
[2021-10-27 09:35] VITALS: BP_SYST 136
[2021-10-27] MEDS: AZITHROMYCIN 500 MG in NS 250 ML IV SCH (11:48)
[2021-10-27 13:26] VITALS: BP_SYST 125
[2021-10-27 16:38] VITALS: BP_SYST 113
[2021-10-27 21:12] VITALS: BP_SYST 127
[2021-10-27] MEDS: QUEtiapine FUMARATE 25 MG TABLET PO SCH (21:21)
[2021-10-27] MEDS: DIVALPROEX SODIUM 125 MG CAP.(DEPAKOTE SPRINKLE) PO SCH (21:22)
[2021-10-27] MEDS: DONEPEZIL HCL 5 MG TABLET (ARICEPT) PO SCH (21:22)
[2021-10-27] MEDS: cefTRIAXone 1 GM in D5W 50 ML IV SCH (23:18)
[2021-10-28] MEDS: DEXAMETHASONE SOD PHOSPHATE 10 MG/ML VIAL IVP SCH ×2 (00:27→23:45)
[2021-10-28 01:43] VITALS: BP_SYST 132
[2021-10-28 07:04] LABS: BASOPHILS % (AUTO) 0.1 % (0.0-2.0); HEMATOCRIT 31.2 % (36-48); HEMOGLOBIN 10.6 g/dL (12.0-16.0); LYMPHOCYTES # (AUTO) 0.4 K/uL (1.0-5.5); LYMPHOCYTES % (AUTO) 8.5 % (20.5-51.5); MEAN CORPUSCULAR HEMOGLOBIN 30 pg (27-31); MEAN CORPUSCULAR HGB CONC 34 % (32-36); MEAN CORPUSCULAR VOLUME 88 fL (79.0-98.0); MONOCYTES # (AUTO) 0.2 K/uL (0.0-1.0); MONOCYTES % (AUTO) 3.2 % (1.7-9.3); NEUTROPHILS # (AUTO) 4.5 K/uL (1.8-7.7); NEUTROPHILS % (AUTO) 88.2 % (40.0-70.0); PLATELET COUNT (AUTO) 122 K/uL (130-430); RED BLOOD CELL COUNT(AUTO) 3.54 MIL/uL (4.2-6.2); RED CELL DISTRIBUTION WIDTH 14.4 % (9.0-15.0); WHITE BLOOD COUNT (AUTO) 5.1 K/uL (4.8-10.8)
[2021-10-28 07:16] LABS: ALANINE AMINOTRANSFERASE 10 U/L (12-78); ALBUMIN 2.9 g/dL (3.4-4.8); ANION GAP 7 (5-15); ASPARTATE AMINOTRANSFERASE 18 U/L (10-37); CALCIUM 7.8 mg/dL (8.4-11.0); CHLORIDE 108 mmol/L (98-107); CREATININE 0.89 mg/dL (0.55-1.30); GLUCOSE 148 mg/dL (70-99); SODIUM SERUM 145 mmol/L (136-145); TOTAL BILIRUBIN 0.2 mg/dL (0.0-1.0); UREA NITROGEN, BLOOD 42 mg/dL (8-21)
[2021-10-28 08:00] VITALS: BP_SYST 149
[2021-10-28] MEDS: DULoxetine HCL 30 MG CAPSULE.DR (CYMBALTA) PO SCH ×2 (08:48→20:38)
[2021-10-28] MEDS: MEMANTINE HCL 5 MG TABLET PO SCH ×2 (08:48→20:37)
[2021-10-28] MEDS: QUEtiapine FUMARATE 100 MG TABLET PO SCH (08:49)
[2021-10-28] MEDS: ENOXAPARIN SODIUM 40 MG/0.4 ML SYRINGE SUBCUT SCH (08:50)
[2021-10-28] MEDS: amLODIPine BESYLATE 5 MG TABLET PO SCH (09:29)
[2021-10-28 12:00] VITALS: BP_SYST 130
[2021-10-28 16:37] VITALS: BP_SYST 123
[2021-10-28 20:34] VITALS: BP_SYST 145
[2021-10-28] MEDS: DIVALPROEX SODIUM 125 MG CAP.(DEPAKOTE SPRINKLE) PO SCH (20:37)
[2021-10-28] MEDS: DONEPEZIL HCL 5 MG TABLET (ARICEPT) PO SCH (20:37)
[2021-10-28] MEDS: QUEtiapine FUMARATE 25 MG TABLET PO SCH (20:37)
[2021-10-28] MEDS: cefTRIAXone 1 GM in D5W 50 ML IV SCH (23:45)
[2021-10-29 01:18] VITALS: BP_SYST 121
[2021-10-29 06:29] LABS: ANION GAP 8 (5-15); CALCIUM 7.8 mg/dL (8.4-11.0); CHLORIDE 103 mmol/L (98-107); CREATININE 0.83 mg/dL (0.55-1.30); GLUCOSE 159 mg/dL (70-99); POTASSIUM 4.4 mmol/L (3.5-5.1); SODIUM SERUM 138 mmol/L (136-145); UREA NITROGEN, BLOOD 20 mg/dL (8-21)
[2021-10-29 07:51] LABS: BASOPHILS % (AUTO) 0.2 % (0.0-2.0); EOSINOPHILS % (AUTO) 0.1 % (0.0-4.0); HEMATOCRIT 35.5 % (36-48); HEMOGLOBIN 11.9 g/dL (12.0-16.0); LYMPHOCYTES # (AUTO) 0.6 K/uL (1.0-5.5); LYMPHOCYTES % (AUTO) 9.5 % (20.5-51.5); MEAN CORPUSCULAR HEMOGLOBIN 30 pg (27-31); MEAN CORPUSCULAR HGB CONC 34 % (32-36); MEAN CORPUSCULAR VOLUME 89 fL (79.0-98.0); MONOCYTES # (AUTO) 0.2 K/uL (0.0-1.0); NEUTROPHILS % (AUTO) 86.2 % (40.0-70.0); PLATELET COUNT (AUTO) 132 K/uL (130-430); RED CELL DISTRIBUTION WIDTH 14.8 % (9.0-15.0); WHITE BLOOD COUNT (AUTO) 5.8 K/uL (4.8-10.8)
[2021-10-29 08:00] VITALS: BP_SYST 152
[2021-10-29] MEDS: QUEtiapine FUMARATE 100 MG TABLET PO SCH (09:56)
[2021-10-29] MEDS: DULoxetine HCL 30 MG CAPSULE.DR (CYMBALTA) PO SCH ×2 (09:56→21:56)
[2021-10-29] MEDS: MEMANTINE HCL 5 MG TABLET PO SCH ×2 (09:56→21:56)
[2021-10-29] MEDS: amLODIPine BESYLATE 5 MG TABLET PO SCH (09:57)
[2021-10-29] MEDS: ENOXAPARIN SODIUM 40 MG/0.4 ML SYRINGE SUBCUT SCH (09:58)
[2021-10-29 12:00] VITALS: BP_SYST 142
[2021-10-29 16:47] VITALS: BP_SYST 145
[2021-10-29 20:24] VITALS: BP_SYST 112
[2021-10-29] MEDS: DIVALPROEX SODIUM 125 MG CAP.(DEPAKOTE SPRINKLE) PO SCH (21:55)
[2021-10-29] MEDS: QUEtiapine FUMARATE 25 MG TABLET PO SCH (21:56)
[2021-10-29] MEDS: DONEPEZIL HCL 5 MG TABLET (ARICEPT) PO SCH (21:56)
[2021-10-29] MEDS: cefTRIAXone 1 GM in D5W 50 ML IV SCH (23:38)
[2021-10-29] MEDS: DEXAMETHASONE SOD PHOSPHATE 10 MG/ML VIAL IVP SCH (23:39)
[2021-10-30 00:47] VITALS: BP_SYST 112
[2021-10-30 08:00] VITALS: BP_SYST 176
[2021-10-30] MEDS: DULoxetine HCL 30 MG CAPSULE.DR (CYMBALTA) PO SCH ×2 (10:30→21:14)
[2021-10-30] MEDS: QUEtiapine FUMARATE 100 MG TABLET PO SCH (10:32)
[2021-10-30] MEDS: amLODIPine BESYLATE 5 MG TABLET PO SCH (10:32)
[2021-10-30] MEDS: MEMANTINE HCL 5 MG TABLET PO SCH ×2 (10:32→21:14)
[2021-10-30] MEDS: ENOXAPARIN SODIUM 40 MG/0.4 ML SYRINGE SUBCUT SCH (10:33)
[2021-10-30 12:00] VITALS: BP_SYST 137
[2021-10-30 16:00] VITALS: BP_SYST 141
[2021-10-30] MEDS: DIVALPROEX SODIUM 125 MG CAP.(DEPAKOTE SPRINKLE) PO SCH (21:14)
[2021-10-30] MEDS: QUEtiapine FUMARATE 25 MG TABLET PO SCH (21:14)
[2021-10-30] MEDS: DONEPEZIL HCL 5 MG TABLET (ARICEPT) PO SCH (21:14)
[2021-10-30 21:20] VITALS: BP_SYST 119
[2021-10-30 23:44] VITALS: BP_SYST 124
[2021-10-31] MEDS: DEXAMETHASONE SOD PHOSPHATE 10 MG/ML VIAL IVP SCH (00:13)
[2021-10-31] MEDS: cefTRIAXone 1 GM in D5W 50 ML IV SCH ×2 (00:14→23:13)
[2021-10-31 08:00] VITALS: BP_SYST 133
[2021-10-31] MEDS: DULoxetine HCL 30 MG CAPSULE.DR (CYMBALTA) PO SCH ×2 (10:16→21:34)
[2021-10-31] MEDS: ENOXAPARIN SODIUM 40 MG/0.4 ML SYRINGE SUBCUT SCH (10:16)
[2021-10-31] MEDS: QUEtiapine FUMARATE 100 MG TABLET PO SCH (10:16)
[2021-10-31] MEDS: MEMANTINE HCL 5 MG TABLET PO SCH ×2 (10:17→21:34)
[2021-10-31] MEDS: amLODIPine BESYLATE 5 MG TABLET PO SCH (10:17)
[2021-10-31 12:00] VITALS: BP_SYST 134
[2021-10-31 16:00] VITALS: BP_SYST 132
[2021-10-31 20:37] VITALS: BP_SYST 134
[2021-10-31] MEDS: QUEtiapine FUMARATE 25 MG TABLET PO SCH (21:33)
[2021-10-31] MEDS: DONEPEZIL HCL 5 MG TABLET (ARICEPT) PO SCH (21:33)
[2021-10-31] MEDS: DIVALPROEX SODIUM 125 MG CAP.(DEPAKOTE SPRINKLE) PO SCH (21:34)
[2021-11-01 00:41] VITALS: BP_SYST 116
[2021-11-01 08:00] VITALS: BP_SYST 140
[2021-11-01] MEDS: QUEtiapine FUMARATE 100 MG TABLET PO SCH (09:25)
[2021-11-01] MEDS: DULoxetine HCL 30 MG CAPSULE.DR (CYMBALTA) PO SCH (09:25)
[2021-11-01] MEDS: MEMANTINE HCL 5 MG TABLET PO SCH (09:26)
[2021-11-01] MEDS: ENOXAPARIN SODIUM 40 MG/0.4 ML SYRINGE SUBCUT SCH (09:26)
[2021-11-01] MEDS: amLODIPine BESYLATE 5 MG TABLET PO SCH (09:26)
[2021-11-01 17:36] VITALS: BP_SYST 138
== END 2021-11-01 18:20 | DRG 871 ==
LOC: SED 22:45 → STU 10-23 05:22 → SMU 10-23 23:23
PROVIDERS: ADMIT Internal Medicine; ATTEND Internal Medicine
PROC: XW033E5 Introduction of Remdesivir Anti-infective into Peripheral Vein, Percutaneous Approach, New Technology Group 5 (ICD-10-PCS; principal; 2021-10-25)
DX: A41.9 Sepsis, unspecified organism (principal); E43 Unspecified severe protein-calorie malnutrition; U07.1 COVID-19; J12.82 Pneumonia due to coronavirus disease 2019; D61.818 Other pancytopenia; I35.0 Nonrheumatic aortic (valve) stenosis; K21.9 Gastro-esophageal reflux disease without esophagitis; E78.5 Hyperlipidemia, unspecified; E03.9 Hypothyroidism, unspecified; I11.0 Hypertensive heart disease with heart failure; I50.9 Heart failure, unspecified; F03.90 Unspecified dementia, unspecified severity, without behavioral disturbance, psychotic disturbance, mood disturbance, and anxiety; F31.9 Bipolar disorder, unspecified; G40.909 Epilepsy, unspecified, not intractable, without status epilepticus; I25.10 Atherosclerotic heart disease of native coronary artery without angina pectoris; Z90.710 Acquired absence of both cervix and uterus; Z90.11 Acquired absence of right breast and nipple; Z85.42 Personal history of malignant neoplasm of other parts of uterus; Z85.3 Personal history of malignant neoplasm of breast; Z74.01 Bed confinement status; I25.2 Old myocardial infarction; Z79.82 Long term (current) use of aspirin; Z79.899 Other long term (current) drug therapy; Z68.24 Body mass index [BMI] 24.0-24.9, adult
CPT/HCPCS: 36415; 70450-TC; 71045; 71275; 72125-TC; 72192-TC; 76376; 80048; 80053; 81003; 83605; 83880; 84484; 85025; 85379; 85610-TC; 85730-TC; 87040; 87081; 87086; 93005; 96360; 99285; J0360; J0456; J0696; J1100; J1650; J2060; J2543; J3370; J7050; J7060; Q9967

== ENCOUNTER 2022-07-22 09:50 | Inpatient (IN) | payer OTHER, MEDICAID ==
[~2022-07-22] VITALS: Ht 172.7 cm; Wt 78.9 kg
[~2022-07-22 09:50] MED LIST changes: +ACET500C21 PO; +AMIN30LI2 PO; +ASCO500T20 PO; +CHOL50009 PO; +CLON0.1T PO; +DIVA125T2 PO; +DOCU-192 PO; +DONE10TA4 PO; +DULO-77 PO; +FAMO-268 PO; +FERR-31 PO; +LATA7.5D LEFT EYE; +LETR2.5T6 PO; +LEVO500T20 PO; +LEVO75CA5 PO; +LIP20 PO; +LIS20 PO; +MEMA5TAB42 PO; +MULT-1294 PO; +POTA20LI5 PO; +PROM6.256 PO; +QUET200T31 PO; +QUET50TA24 PO; +TIMO1DRO5 LEFT EYE
[2022-07-22 10:05] VITALS: BP_SYST 160
--- NOTE | 2022-07-22 10:05 | NUR ---
RECEIVED PT FROM MINNA MONTESINOS. PT PAGE [place] FROM FOR C/O MULTIPLE SEIZURE ACTIVITY. PT IS AAOX2-3, PT HAS MUSCLE TWITCHING EPISODES UPON ARRIVAL, DR. BELTRAN MADE AWARE. PT NOTED TO BE IN NSR DURING EPISODE, DR. BELTRAN STATES IT IS NOT A SEIZURE. RESP E/U. ON 2LPM, O2 SAT 98%. NO COUGH OR SOB NOTED. DISTAL PULSES NORMAL. SKIN WARM, INTACT. NO PERIPHERAL EDEMA NOTED. PT DENIES PAIN. SIDERAILS UP X2, SEIZURE PRECAUTIONS IN PLACE.
--- NOTE | 2022-07-22 10:06 | NUR ---
DR. BELTRAN AT BEDSIDE TO ASSESS PT.
[2022-07-22] MEDS ORDERED: VALPROATE SODIUM 500 MG in D5W 100 ML IV ONE (10:15)
--- NOTE | 2022-07-22 10:15 | NUR ---
# 22 gauge angiocath placed to RFA. Use of asceptic technique. Opsite placed over site. Blood return noted. Flushed with 10 cc of normal saline. No evidence of infiltration noted. Patient tolerated well.
[2022-07-22] MEDS ORDERED: VALPROATE SODIUM 100 MG/ML VIAL (DEPACON) IV ONE (10:18)
--- NOTE | 2022-07-22 10:27 | NUR ---
[facility] IVPB INITIATED TO BE COMPLETED AT 1127.
--- NOTE | 2022-07-22 10:28 | NUR ---
ACTUARIAL TECHNICIAN OBTAINED BLOOD AND SAMPLES TAKEN TO LAB.
[2022-07-22 10:32] LABS: BASOPHILS % (AUTO) 0.8 % (0.0-2.0); EOSINOPHILS # (AUTO) 0.3 K/uL (0.0-0.4); EOSINOPHILS % (AUTO) 5.6 % (0.0-4.0); HEMATOCRIT 40.9 % (36-48); HEMOGLOBIN 13.3 g/dL (12.0-16.0); LYMPHOCYTES # (AUTO) 1.1 K/uL (1.0-5.5); LYMPHOCYTES % (AUTO) 20.6 % (20.5-51.5); MEAN CORPUSCULAR HEMOGLOBIN 30 pg (27-31); MEAN CORPUSCULAR HGB CONC 33 % (32-36); MEAN CORPUSCULAR VOLUME 92 fL (79.0-98.0); MONOCYTES # (AUTO) 0.7 K/uL (0.0-1.0); MONOCYTES % (AUTO) 13.4 % (1.7-9.3); NEUTROPHILS # (AUTO) 3.1 K/uL (1.8-7.7); NEUTROPHILS % (AUTO) 59.6 % (40.0-70.0); PLATELET COUNT (AUTO) 112 K/uL (130-430); RED BLOOD CELL COUNT(AUTO) 4.44 MIL/uL (4.2-6.2); RED CELL DISTRIBUTION WIDTH 14.5 % (9.0-15.0); WHITE BLOOD COUNT (AUTO) 5.2 K/uL (4.8-10.8)
[2022-07-22 10:36] LABS: ANION GAP 7 (5-15); CALCIUM 9.3 mg/dL (8.4-11.0); CHLORIDE 104 mmol/L (98-107); CREATININE 0.98 mg/dL (0.55-1.30); GLUCOSE 93 mg/dL (70-99); UREA NITROGEN, BLOOD 20 mg/dL (8-21)
[2022-07-22 10:44] LABS: ASPARTATE AMINOTRANSFERASE 17 U/L (10-37); TOTAL BILIRUBIN 0.4 mg/dL (0.0-1.0)
[2022-07-22 10:45] LABS: ALANINE AMINOTRANSFERASE 18 U/L (12-78); ALBUMIN 3.5 g/dL (3.4-4.8); VALPROIC ACID 37 ug/mL (50-100)
[2022-07-22] MEDS ORDERED: VITD2000 PO (10:55)
--- NOTE | 2022-07-22 11:50 | NUR ---
Admit bed requested Patient will be admitted to care of . Admitted to MEDICAL SURGICAL unit. Diagnosis SEIZURE Inpatient (Yes or No) YES Observation (Yes or No) NO Orientation concerns or request close to nursing station (Yes or No) NO Covid Status PENDING On vent or bipap NONE Isolation requirements PENDING Needs a sitter YES From Home (Yes or if No enter name of facility) [facility] Requires Dialysis (Yes or No) NONE Med Rec Completed (Yes of No) YES
--- NOTE | 2022-07-22 12:31 | NUR ---
COVID, MRSA, MELANI SAMPLED OBTAINED AND TAKEN TO LAB.
--- NOTE | 2022-07-22 13:00 | NUR ---
PT GIVEN PUREED DIET AND COMPLETED 100% LUNCH.
--- NOTE | 2022-07-22 14:11 | NUR ---
Patient will be admitted to care of MINNA HARE. Admitted to MEDICAL SURGICAL unit. Will go to room 120B. Belongings list completed. Complete and up to date summary report printed. SBAR report to be given at bedside with opportunity for questions.
--- NOTE | 2022-07-22 14:14 | NUR ---
CONSULTATION PAGED REASON FOR CONSULTATION:SEIZURES WAS CONSULT CALLED?Y PERSON WHO WAS NOTIFIED:TEXT MESSAGED MONTSE LINTON CONSULTING PHYSICIAN:MONTSE LINTON HYDROELECTRIC OPERATOR SPECIALTY:NEURO HYDROELECTRIC OPERATOR PHONE NUMBER:[phone] REQUESTING PHYSICIAN:DELROY VELEZ
[2022-07-22 15:00] VITALS: BP_SYST 130
[2022-07-22] MEDS ORDERED: cloNIDine HCL 0.1 MG TABLET PO PRN (16:00)
[2022-07-22 17:09] VITALS: BP_SYST 155
[2022-07-22] MEDS: LATANOPROST 2.5 ML DROPS (XALATAN) LEFT EYE SCH (17:36)
[2022-07-22 20:00] VITALS: BP_SYST 151
[2022-07-22] MEDS: MEMANTINE HCL 5 MG TABLET PO SCH (21:17)
[2022-07-22] MEDS: DIVALPROEX SODIUM 125 MG CAP.(DEPAKOTE SPRINKLE) PO SCH (21:17)
[2022-07-22] MEDS: TIMOLOL MALEATE 0.5% OPHTHALMIC DROPS 5 ML LEFT EYE SCH (21:17)
[2022-07-22] MEDS: FERROUS SULFATE 325 MG TABLET.DR PO SCH (21:17)
[2022-07-22] MEDS: ATORVASTATIN 20 MG TABLET PO SCH (21:17)
[2022-07-22] MEDS: QUEtiapine FUMARATE 25 MG TABLET PO SCH (21:17)
[2022-07-22] MEDS: DULoxetine HCL 30 MG CAPSULE.DR (CYMBALTA) PO SCH (21:18)
[2022-07-22] MEDS: DONEPEZIL HCL 5 MG TABLET (ARICEPT) PO SCH (21:18)
[2022-07-23] VITALS: BP_SYST 132
[2022-07-23 06:56] LABS: ANION GAP 7 (5-15); CALCIUM 9.2 mg/dL (8.4-11.0); CHLORIDE 103 mmol/L (98-107); CREATININE 0.93 mg/dL (0.55-1.30); GLUCOSE 93 mg/dL (70-99); UREA NITROGEN, BLOOD 19 mg/dL (8-21)
[2022-07-23 07:01] LABS: ALANINE AMINOTRANSFERASE 18 U/L (12-78); ALBUMIN 3.5 g/dL (3.4-4.8); ASPARTATE AMINOTRANSFERASE 16 U/L (10-37); TOTAL BILIRUBIN 0.4 mg/dL (0.0-1.0); VALPROIC ACID 60 ug/mL (50-100)
--- NOTE | 2022-07-23 07:28 | NUR ---
REPORT GIVEN TO MINNA HARE
[2022-07-23 07:38] LABS: BASOPHILS % (AUTO) 0.8 % (0.0-2.0); EOSINOPHILS # (AUTO) 0.3 K/uL (0.0-0.4); EOSINOPHILS % (AUTO) 4.9 % (0.0-4.0); HEMATOCRIT 41.9 % (36-48); HEMOGLOBIN 13.8 g/dL (12.0-16.0); MEAN CORPUSCULAR HEMOGLOBIN 30 pg (27-31); MEAN CORPUSCULAR HGB CONC 33 % (32-36); MEAN CORPUSCULAR VOLUME 92 fL (79.0-98.0); MONOCYTES # (AUTO) 0.7 K/uL (0.0-1.0); MONOCYTES % (AUTO) 12.4 % (1.7-9.3); NEUTROPHILS # (AUTO) 3.7 K/uL (1.8-7.7); NEUTROPHILS % (AUTO) 63.9 % (40.0-70.0); PLATELET COUNT (AUTO) 119 K/uL (130-430); RED BLOOD CELL COUNT(AUTO) 4.55 MIL/uL (4.2-6.2); RED CELL DISTRIBUTION WIDTH 14.3 % (9.0-15.0); WHITE BLOOD COUNT (AUTO) 5.8 K/uL (4.8-10.8)
[2022-07-23 08:00] VITALS: BP_SYST 132
[2022-07-23] MEDS: LETROZOLE 2.5 MG TABLET (FEMARA) PO SCH (08:27)
[2022-07-23] MEDS: DULoxetine HCL 30 MG CAPSULE.DR (CYMBALTA) PO SCH ×2 (08:28→23:25)
[2022-07-23] MEDS: FENOFIBRATE NANOCRYSTALLIZED 48 MG TABLET (TRICOR) PO SCH (08:28)
[2022-07-23] MEDS: FAMOTIDINE 20 MG TABLET PO SCH (08:28)
[2022-07-23] MEDS: LEVOTHYROXINE SODIUM 0.075 MG TABLET PO SCH (08:28)
[2022-07-23] MEDS: MEMANTINE HCL 5 MG TABLET PO SCH ×2 (08:28→23:24)
[2022-07-23] MEDS: CHOLECALCIFEROL (VITAMIN D3) 2,000 UNIT TABLET PO SCH (08:28)
[2022-07-23] MEDS: DOCUSATE SODIUM 100 MG CAPSULE PO SCH (08:28)
[2022-07-23] MEDS: FERROUS SULFATE 325 MG TABLET.DR PO SCH ×3 (08:30→23:24)
[2022-07-23] MEDS: TIMOLOL MALEATE 0.5% OPHTHALMIC DROPS 5 ML LEFT EYE SCH ×2 (08:30→23:25)
[2022-07-23 11:53] VITALS: BP_SYST 151
--- NOTE | 2022-07-23 13:30 | NUR ---
PHYSICAL THERAPY CO-SIGN The Physical Therapy Progress Notes documented by Field Sales Engineer have been reviewed. Reviewed/Co-Signed by: Carroll Piña Documentation Done by:SOPHIE ZAMORA Addendum: 07/23/22 at 1330 by Carroll Piañ PT Amended: Links added.
--- NOTE | 2022-07-23 16:21 | NUR ---
Shift Summary: patient is AAOX2-3. vitals are stable. patient updated on plan of care for shift. patient continues to need re-orienting. patient given multiple education regarding using call light if patient needs to ambulate due to patient being high risk for falls. 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 will continue to monitor. call light within reach, bed set to low, locked, and alarm on.
[2022-07-23 16:34] VITALS: BP_SYST 152
[2022-07-23] MEDS: LATANOPROST 2.5 ML DROPS (XALATAN) LEFT EYE SCH (18:09)
[2022-07-23 21:00] VITALS: BP_SYST 138
[2022-07-23] MEDS: DIVALPROEX SODIUM 125 MG CAP.(DEPAKOTE SPRINKLE) PO SCH (23:23)
[2022-07-23] MEDS: QUEtiapine FUMARATE 25 MG TABLET PO SCH (23:23)
[2022-07-23] MEDS: DONEPEZIL HCL 5 MG TABLET (ARICEPT) PO SCH (23:24)
[2022-07-23] MEDS: ATORVASTATIN 20 MG TABLET PO SCH (23:27)
[2022-07-24 00:50] VITALS: BP_SYST 170
--- NOTE | 2022-07-24 00:56 | NUR ---
CATAPRES 0.1MG po given for HTN 170/85 continue to monitor / .
[2022-07-24 03:26] VITALS: BP_SYST 145
--- NOTE | 2022-07-24 03:58 | NUR ---
Hourly Rounding patient Resting BP stable on Re check skin dry warm assist as needed .
[2022-07-24 06:35] LABS: BASOPHILS # (AUTO) 0.1 K/uL (0.0-0.2); BASOPHILS % (AUTO) 0.9 % (0.0-2.0); EOSINOPHILS # (AUTO) 0.3 K/uL (0.0-0.4); EOSINOPHILS % (AUTO) 4.7 % (0.0-4.0); HEMATOCRIT 43.4 % (36-48); HEMOGLOBIN 14.4 g/dL (12.0-16.0); LYMPHOCYTES # (AUTO) 1.3 K/uL (1.0-5.5); LYMPHOCYTES % (AUTO) 20.1 % (20.5-51.5); MEAN CORPUSCULAR HEMOGLOBIN 30 pg (27-31); MEAN CORPUSCULAR HGB CONC 33 % (32-36); MEAN CORPUSCULAR VOLUME 91 fL (79.0-98.0); MONOCYTES % (AUTO) 15.1 % (1.7-9.3); NEUTROPHILS # (AUTO) 3.9 K/uL (1.8-7.7); NEUTROPHILS % (AUTO) 59.2 % (40.0-70.0); PLATELET COUNT (AUTO) 122 K/uL (130-430); RED BLOOD CELL COUNT(AUTO) 4.75 MIL/uL (4.2-6.2); RED CELL DISTRIBUTION WIDTH 14.6 % (9.0-15.0); WHITE BLOOD COUNT (AUTO) 6.6 K/uL (4.8-10.8)
[2022-07-24 06:48] LABS: ANION GAP 6 (5-15); CALCIUM 9.4 mg/dL (8.4-11.0); CHLORIDE 103 mmol/L (98-107); CREATININE 1.25 mg/dL (0.55-1.30); GLUCOSE 90 mg/dL (70-99); UREA NITROGEN, BLOOD 26 mg/dL (8-21)
[2022-07-24 08:00] VITALS: BP_SYST 110
[2022-07-24] MEDS: CHOLECALCIFEROL (VITAMIN D3) 2,000 UNIT TABLET PO SCH (08:33)
[2022-07-24] MEDS: FAMOTIDINE 20 MG TABLET PO SCH (08:34)
[2022-07-24] MEDS: LETROZOLE 2.5 MG TABLET (FEMARA) PO SCH (08:34)
[2022-07-24] MEDS: DULoxetine HCL 30 MG CAPSULE.DR (CYMBALTA) PO SCH ×2 (08:34→22:31)
[2022-07-24] MEDS: FERROUS SULFATE 325 MG TABLET.DR PO SCH ×3 (08:34→22:30)
[2022-07-24] MEDS: DOCUSATE SODIUM 100 MG CAPSULE PO SCH (08:34)
[2022-07-24] MEDS: MEMANTINE HCL 5 MG TABLET PO SCH ×2 (08:34→22:31)
[2022-07-24] MEDS: LEVOTHYROXINE SODIUM 0.075 MG TABLET PO SCH (08:34)
[2022-07-24] MEDS: FENOFIBRATE NANOCRYSTALLIZED 48 MG TABLET (TRICOR) PO SCH (08:34)
[2022-07-24] MEDS: TIMOLOL MALEATE 0.5% OPHTHALMIC DROPS 5 ML LEFT EYE SCH ×2 (08:35→22:32)
[2022-07-24 12:00] VITALS: BP_SYST 132
[2022-07-24 16:00] VITALS: BP_SYST 125
[2022-07-24] MEDS: LATANOPROST 2.5 ML DROPS (XALATAN) LEFT EYE SCH (18:22)
[2022-07-24 20:30] VITALS: BP_SYST 144
[2022-07-24] MEDS: ATORVASTATIN 20 MG TABLET PO SCH (22:29)
[2022-07-24] MEDS: QUEtiapine FUMARATE 25 MG TABLET PO SCH (22:30)
[2022-07-24] MEDS: DIVALPROEX SODIUM 125 MG CAP.(DEPAKOTE SPRINKLE) PO SCH (22:31)
[2022-07-24] MEDS: DONEPEZIL HCL 5 MG TABLET (ARICEPT) PO SCH (22:31)
--- NOTE | 2022-07-24 23:53 | NUR ---
Hourly Rounding patient awake is verbally Responsive FALL RISK measures implemented procedures explained call meraz given to patient / .
[2022-07-25 02:10] VITALS: BP_SYST 101
--- NOTE | 2022-07-25 03:25 | NUR ---
Hourly Rounding patient Resting chest movement symmetrical bed alarm Remains on / monitor .
[2022-07-25 07:37] LABS: ANION GAP 7 (5-15); CALCIUM 9.1 mg/dL (8.4-11.0); CHLORIDE 101 mmol/L (98-107); CREATININE 1.63 mg/dL (0.55-1.30); GLUCOSE 88 mg/dL (70-99); UREA NITROGEN, BLOOD 42 mg/dL (8-21)
[2022-07-25 08:27] LABS: BASOPHILS % (AUTO) 0.8 % (0.0-2.0); EOSINOPHILS # (AUTO) 0.3 K/uL (0.0-0.4); EOSINOPHILS % (AUTO) 5.6 % (0.0-4.0); HEMATOCRIT 41.1 % (36-48); HEMOGLOBIN 13.6 g/dL (12.0-16.0); LYMPHOCYTES # (AUTO) 1.3 K/uL (1.0-5.5); LYMPHOCYTES % (AUTO) 25.8 % (20.5-51.5); MEAN CORPUSCULAR HEMOGLOBIN 30 pg (27-31); MEAN CORPUSCULAR HGB CONC 33 % (32-36); MEAN CORPUSCULAR VOLUME 92 fL (79.0-98.0); MONOCYTES # (AUTO) 0.7 K/uL (0.0-1.0); MONOCYTES % (AUTO) 13.6 % (1.7-9.3); NEUTROPHILS # (AUTO) 2.8 K/uL (1.8-7.7); NEUTROPHILS % (AUTO) 54.2 % (40.0-70.0); PLATELET COUNT (AUTO) 125 K/uL (130-430); RED BLOOD CELL COUNT(AUTO) 4.49 MIL/uL (4.2-6.2); RED CELL DISTRIBUTION WIDTH 14.7 % (9.0-15.0); WHITE BLOOD COUNT (AUTO) 5.2 K/uL (4.8-10.8)
[2022-07-25] MEDS: FENOFIBRATE NANOCRYSTALLIZED 48 MG TABLET (TRICOR) PO SCH (09:19)
[2022-07-25] MEDS: FERROUS SULFATE 325 MG TABLET.DR PO SCH ×2 (09:20→16:18)
[2022-07-25] MEDS: CHOLECALCIFEROL (VITAMIN D3) 2,000 UNIT TABLET PO SCH (09:20)
[2022-07-25] MEDS: FAMOTIDINE 20 MG TABLET PO SCH (09:20)
[2022-07-25] MEDS: DULoxetine HCL 30 MG CAPSULE.DR (CYMBALTA) PO SCH (09:20)
[2022-07-25] MEDS: DOCUSATE SODIUM 100 MG CAPSULE PO SCH (09:20)
[2022-07-25] MEDS: LEVOTHYROXINE SODIUM 0.075 MG TABLET PO SCH (09:20)
[2022-07-25] MEDS: MEMANTINE HCL 5 MG TABLET PO SCH (09:20)
[2022-07-25] MEDS: TIMOLOL MALEATE 0.5% OPHTHALMIC DROPS 5 ML LEFT EYE SCH (09:21)
[2022-07-25] MEDS: LETROZOLE 2.5 MG TABLET (FEMARA) PO SCH (09:22)
[2022-07-25 13:05] VITALS: BP_SYST 112
--- NOTE | 2022-07-25 13:12 | NUR ---
PHYSICAL THERAPY CO-SIGN The Physical Therapy Progress Notes documented by Carton Folder have been reviewed. Reviewed/Co-Signed by: Carroll Piña Documentation Done by:SOPHIE ZAMORA Addendum: 07/25/22 at 1312 by Carroll Piña PT Amended: Links added.
--- NOTE | 2022-07-25 15:00 | NUR ---
CM: faxed referral to [facility]. The patient is accepting back to room 14. DC package placed in nursing unit, ELVIS Khan will help calling transportation.
[2022-07-25 16:56] VITALS: BP_SYST 125
--- NOTE | 2022-07-25 18:57 | NUR ---
call a car called and set up transport reference [id number] medicinal plant picker with joi aguilar [phone]
[2022-07-25] MEDS: LATANOPROST 2.5 ML DROPS (XALATAN) LEFT EYE SCH (18:58)
[2022-07-25 19:33] VITALS: BP_SYST 125
--- NOTE | 2022-07-25 19:52 | NUR ---
patient dc to [facility] bed 14, report given to lauren melgoza at facility, transported via [facility], iv dc with cath intact,
== END 2022-07-25 19:52 | DRG 101 ==
LOC: SED 09:50 → SMU 11:43
PROVIDERS: ADMIT Internal Medicine; ATTEND Internal Medicine
PROC: 4A00X4Z Measurement of Central Nervous Electrical Activity, External Approach (ICD-10-PCS; principal; 2022-07-24)
DX: G40.409 Other generalized epilepsy and epileptic syndromes, not intractable, without status epilepticus (principal); I10 Essential (primary) hypertension; G30.9 Alzheimer's disease, unspecified; K21.9 Gastro-esophageal reflux disease without esophagitis; D64.9 Anemia, unspecified; E03.9 Hypothyroidism, unspecified; Z20.822 Contact with and (suspected) exposure to COVID-19; F02.80 Dementia in other diseases classified elsewhere, unspecified severity, without behavioral disturbance, psychotic disturbance, mood disturbance, and anxiety; F32.A Depression, unspecified; Z79.899 Other long term (current) drug therapy; Z85.3 Personal history of malignant neoplasm of breast; Z79.1 Long term (current) use of non-steroidal anti-inflammatories (NSAID)
CPT/HCPCS: 36415; 80048; 80053; 80164; 83605; 85025; 87081; 95816; 96365; 97110-GP; 97116-GP; 97530-GP; 99285

== ENCOUNTER 2023-03-22 13:31 | Inpatient (IN) | payer OTHER, MEDICAID ==
[~2023-03-22] VITALS: Ht 162.6 cm; Wt 67.2 kg
[~2023-03-22 13:31] MED LIST changes: -CHOL500013 PO; -CHOL50009 PO; -DOCU-156 PO; -DONE10TA44 PO; -DULO60CA42 PO; -FAMO20TA8 PO; -FEM2.5 PO; -FERR-69 PO; -LATA7.5D LEFT EYE; -LEVO75TA7 PO; -LISI20TA30 PO; -MEMA14CA5 PO; -MULT-1164 PO; -POTA20LI5 PO; -PROM6.256 PO; -QUET200T PO; -QUET200T31 PO; -QUET50TA PO; -TIMO1DRO5 LEFT EYE; -TIMO5DRO15 LEFT EYE; +TIMO5DRO18 LEFT EYE; +VITD2000 PO
[2023-03-22 13:36] VITALS: BP_SYST 167; PULSE 88; RESP 22; TEMP 98.3; O2SAT 98
[2023-03-22 15:24] LABS: ANION GAP 7 (5-15); CALCIUM 10.5 mg/dL (8.4-11.0); CARBON DIOXIDE 29 mmol/L (23-29); CHLORIDE 105 mmol/L (98-107); CREATININE 0.93 mg/dL (0.55-1.30); GLUCOSE 111 mg/dL (74-106); POTASSIUM 3.8 mmol/L (3.5-5.1); SODIUM SERUM 141 mmol/L (136-145); UREA NITROGEN, BLOOD 25 mg/dL (8-21)
[2023-03-22 15:38] LABS: BASOPHILS # (AUTO) 0.1 K/uL (0.0-0.2); BASOPHILS % (AUTO) 0.7 % (0.0-2.0); EOSINOPHILS # (AUTO) 0.3 K/uL (0.0-0.4); EOSINOPHILS % (AUTO) 4.6 % (0.0-4.0); HEMATOCRIT 44.6 % (36-48); HEMOGLOBIN 14.1 g/dL (12.0-16.0); LYMPHOCYTES # (AUTO) 0.7 K/uL (1.0-5.5); LYMPHOCYTES % (AUTO) 10.5 % (20.5-51.5); MEAN CORPUSCULAR HEMOGLOBIN 29 pg (27-31); MEAN CORPUSCULAR HGB CONC 32 % (32-36); MEAN CORPUSCULAR VOLUME 93 fL (79.0-98.0); MONOCYTES # (AUTO) 0.5 K/uL (0.0-1.0); MONOCYTES % (AUTO) 7.4 % (1.7-9.3); NEUTROPHILS # (AUTO) 5.4 K/uL (1.8-7.7); NEUTROPHILS % (AUTO) 76.8 % (40.0-70.0); PLATELET COUNT (AUTO) 158 K/uL (130-430); RED BLOOD CELL COUNT(AUTO) 4.82 MIL/uL (4.2-6.2); RED CELL DISTRIBUTION WIDTH 16.1 % (9.0-15.0)
[2023-03-22 15:45] LABS: ALANINE AMINOTRANSFERASE 13 U/L (12-78); ALBUMIN 3.6 g/dL (3.4-4.8); ASPARTATE AMINOTRANSFERASE 22 U/L (10-37); CREATINE KINASE, TOTAL 52 U/L (26-192); THYROID STIMULATING HORMONE 1.27 uIu/mL (0.34-4.82); TOTAL BILIRUBIN 0.5 mg/dL (0.0-1.0); TOTAL PROTEIN, SERUM 7.8 g/dL (6.4-8.3)
[2023-03-22 16:07] LABS: BILIRUBIN,URINE NEGATIVE (NEGATIVE); CLARITY/URINE CLEAR (CLEAR); COLOR,URINE YELLOW (YELLOW); GLUCOSE,URINE NEGATIVE (NEGATIVE); KETONES,URINE NEGATIVE (NEGATIVE); LEUKOCYTE ESTERASE ,URINE 2+ (NEGATIVE); NITRITE, URINE NEGATIVE (NEGATIVE); PH,URINE 7.5 (5.0-8.0); PROTEIN URINE NEGATIVE (NEGATIVE); UROBILINOGEN,URINE 0.2 (0.2-1.0)
[2023-03-22 16:10] LABS: BLOOD, URINE TRACE (NEGATIVE)
[2023-03-22] MEDS ORDERED: ASPIRIN 325 MG TABLET PO ONE (16:15)
[2023-03-22 16:17] LABS: INR 1.1 (0.8-1.2); PROTHROMBIN TIME 11.6 SECS (9.5-12.5)
[2023-03-22 16:59] LABS: BACTERIA,URINE MANY /HPF (None Seen); RBC,URINE >100 /HPF (0-3); WBC,URINE >100 /HPF (0-3)
[2023-03-22] MEDS ORDERED: DIVA-74 PO (17:07)
[2023-03-22] MEDS ORDERED: VITD2000 PO (17:07)
[2023-03-22] MEDS ORDERED: ALBU2.5V7 INH (17:07)
[2023-03-22] MEDS ORDERED: LORA-259 PO (17:07)
[2023-03-22 17:19] LABS: ACETONE, SERUM NEGATIVE (NEGATIVE)
[2023-03-22 18:14] VITALS: BP_SYST 154; PULSE 90; RESP 18; TEMP 98.3; O2SAT 98
[2023-03-22 19:00] VITALS: BP_SYST 128; PULSE 86; RESP 16; TEMP 98.4; O2SAT 98
[2023-03-22 20:00] VITALS: BP_SYST 128; PULSE 86; RESP 16; TEMP 98.4; O2SAT 98
[2023-03-22] MEDS: IPRATROPIUM/ALBUTEROL SULFATE 3 ML AMPUL.NEB (DUONEB) INH SCH (20:45)
[2023-03-22 20:53] VITALS: BP_SYST 154; PULSE 92; O2SAT 98
[2023-03-22 20:55] VITALS: O2SAT 98
[2023-03-22] MEDS: FAMOTIDINE PF 20 MG/2 ML VIAL IVP SCH (23:25)
[2023-03-23] VITALS (10 sets, daily range): BP systolic 124–136; PULSE 70–89; RESP 17–19; TEMP 97.2–98.4; O2SAT 95–100
[2023-03-23] MEDS: IPRATROPIUM/ALBUTEROL SULFATE 3 ML AMPUL.NEB (DUONEB) INH SCH ×4 (01:00→20:36)
[2023-03-23 05:45] LABS: BASOPHILS # (AUTO) 0.1 K/uL (0.0-0.2); BASOPHILS % (AUTO) 0.9 % (0.0-2.0); EOSINOPHILS # (AUTO) 0.3 K/uL (0.0-0.4); EOSINOPHILS % (AUTO) 5.2 % (0.0-4.0); HEMATOCRIT 38.9 % (36-48); HEMOGLOBIN 12.4 g/dL (12.0-16.0); LYMPHOCYTES # (AUTO) 0.8 K/uL (1.0-5.5); LYMPHOCYTES % (AUTO) 11.9 % (20.5-51.5); MEAN CORPUSCULAR HEMOGLOBIN 29 pg (27-31); MEAN CORPUSCULAR HGB CONC 32 % (32-36); MEAN CORPUSCULAR VOLUME 91 fL (79.0-98.0); MONOCYTES # (AUTO) 0.6 K/uL (0.0-1.0); MONOCYTES % (AUTO) 9.8 % (1.7-9.3); NEUTROPHILS # (AUTO) 4.7 K/uL (1.8-7.7); NEUTROPHILS % (AUTO) 72.2 % (40.0-70.0); PLATELET COUNT (AUTO) 129 K/uL (130-430); RED BLOOD CELL COUNT(AUTO) 4.26 MIL/uL (4.2-6.2); RED CELL DISTRIBUTION WIDTH 15.5 % (9.0-15.0); WHITE BLOOD COUNT (AUTO) 6.6 K/uL (4.8-10.8)
[2023-03-23 06:02] LABS: ALANINE AMINOTRANSFERASE 15 U/L (12-78); ALBUMIN 3.1 g/dL (3.4-4.8); ANION GAP 6 (5-15); ASPARTATE AMINOTRANSFERASE 15 U/L (10-37); CALCIUM 9.6 mg/dL (8.4-11.0); CARBON DIOXIDE 31 mmol/L (23-29); CHLORIDE 106 mmol/L (98-107); CREATININE 0.86 mg/dL (0.55-1.30); GLUCOSE 109 mg/dL (74-106); PHOSPHORUS 3.3 mg/dL (2.7-4.5); POTASSIUM 3.2 mmol/L (3.5-5.1); SODIUM SERUM 143 mmol/L (136-145); TOTAL BILIRUBIN 0.6 mg/dL (0.0-1.0); TOTAL PROTEIN, SERUM 6.2 g/dL (6.4-8.3); UREA NITROGEN, BLOOD 28 mg/dL (8-21)
[2023-03-23] MEDS ORDERED: ALBUTEROL SULFATE 0.083% 2.5 MG/3 ML VIAL.NEB INH PRN (08:00)
[2023-03-23] MEDS: LEVOTHYROXINE SODIUM 0.075 MG TABLET PO SCH (08:49)
[2023-03-23] MEDS ORDERED: DIVA125T2 PO (08:50)
[2023-03-23] MEDS: cefTRIAXone 1 GM in D5W 50 ML IV SCH (08:50)
[2023-03-23] MEDS: DIVALPROEX SODIUM 125 MG CAP.(DEPAKOTE SPRINKLE) PO SCH ×2 (09:00→20:24)
[2023-03-23] MEDS: LETROZOLE 2.5 MG TABLET (FEMARA) PO SCH (09:00)
[2023-03-23] MEDS ORDERED: LATANOPROST 2.5 ML DROPS (XALATAN) LEFT EYE SCH ×2 (09:00→09:04)
[2023-03-23] MEDS ORDERED: FUROSEMIDE 40 MG/4 ML VIAL IVP SCH (09:00)
[2023-03-23] MEDS: TIMOLOL MALEATE 0.5% OPHTHALMIC DROPS 5 ML LEFT EYE SCH (17:53)
[2023-03-23 19:40] LABS: BASOPHILS % (AUTO) 0.6 % (0.0-2.0); EOSINOPHILS # (AUTO) 0.4 K/uL (0.0-0.4); EOSINOPHILS % (AUTO) 4.2 % (0.0-4.0); HEMATOCRIT 44.7 % (36-48); HEMOGLOBIN 13.9 g/dL (12.0-16.0); LYMPHOCYTES # (AUTO) 0.6 K/uL (1.0-5.5); LYMPHOCYTES % (AUTO) 7.5 % (20.5-51.5); MEAN CORPUSCULAR HEMOGLOBIN 29 pg (27-31); MEAN CORPUSCULAR HGB CONC 31 % (32-36); MEAN CORPUSCULAR VOLUME 92 fL (79.0-98.0); MONOCYTES # (AUTO) 0.6 K/uL (0.0-1.0); MONOCYTES % (AUTO) 7.1 % (1.7-9.3); NEUTROPHILS # (AUTO) 6.9 K/uL (1.8-7.7); NEUTROPHILS % (AUTO) 80.6 % (40.0-70.0); PLATELET COUNT (AUTO) 147 K/uL (130-430); RED BLOOD CELL COUNT(AUTO) 4.86 MIL/uL (4.2-6.2); RED CELL DISTRIBUTION WIDTH 15.2 % (9.0-15.0); WHITE BLOOD COUNT (AUTO) 8.5 K/uL (4.8-10.8)
[2023-03-23 20:08] LABS: ANION GAP 8 (5-15); CALCIUM 10.2 mg/dL (8.4-11.0); CARBON DIOXIDE 30 mmol/L (23-29); CHLORIDE 100 mmol/L (98-107); CREATININE 0.93 mg/dL (0.55-1.30); GLUCOSE 155 mg/dL (74-106); POTASSIUM 3.5 mmol/L (3.5-5.1); SODIUM SERUM 138 mmol/L (136-145); UREA NITROGEN, BLOOD 25 mg/dL (8-21)
[2023-03-23] MEDS: FAMOTIDINE PF 20 MG/2 ML VIAL IVP SCH (20:23)
[2023-03-23] MEDS: LATANOPROST 2.5 ML DROPS (XALATAN) LEFT EYE SCH (20:24)
[2023-03-24] VITALS (9 sets, daily range): BP systolic 125–143; PULSE 65–87; RESP 18–21; TEMP 97.9–98.6; O2SAT 94–99
[2023-03-24] MEDS: IPRATROPIUM/ALBUTEROL SULFATE 3 ML AMPUL.NEB (DUONEB) INH SCH ×4 (01:21→19:34)
[2023-03-24 05:22] LABS: BASOPHILS # (AUTO) 0.1 K/uL (0.0-0.2); BASOPHILS % (AUTO) 1.1 % (0.0-2.0); EOSINOPHILS # (AUTO) 0.4 K/uL (0.0-0.4); EOSINOPHILS % (AUTO) 4.8 % (0.0-4.0); HEMATOCRIT 40.9 % (36-48); LYMPHOCYTES # (AUTO) 0.9 K/uL (1.0-5.5); LYMPHOCYTES % (AUTO) 11.8 % (20.5-51.5); MEAN CORPUSCULAR HEMOGLOBIN 29 pg (27-31); MEAN CORPUSCULAR HGB CONC 32 % (32-36); MEAN CORPUSCULAR VOLUME 90 fL (79.0-98.0); MONOCYTES # (AUTO) 0.6 K/uL (0.0-1.0); MONOCYTES % (AUTO) 8.1 % (1.7-9.3); NEUTROPHILS # (AUTO) 5.5 K/uL (1.8-7.7); NEUTROPHILS % (AUTO) 74.2 % (40.0-70.0); PLATELET COUNT (AUTO) 142 K/uL (130-430); RED BLOOD CELL COUNT(AUTO) 4.53 MIL/uL (4.2-6.2); RED CELL DISTRIBUTION WIDTH 15.4 % (9.0-15.0); WHITE BLOOD COUNT (AUTO) 7.4 K/uL (4.8-10.8)
[2023-03-24 05:48] LABS: ALANINE AMINOTRANSFERASE 11 U/L (12-78); ALBUMIN 3.1 g/dL (3.4-4.8); ANION GAP 7 (5-15); ASPARTATE AMINOTRANSFERASE 17 U/L (10-37); CALCIUM 9.9 mg/dL (8.4-11.0); CARBON DIOXIDE 31 mmol/L (23-29); CHLORIDE 102 mmol/L (98-107); GLUCOSE 101 mg/dL (74-106); POTASSIUM 3.3 mmol/L (3.5-5.1); SODIUM SERUM 140 mmol/L (136-145); TOTAL BILIRUBIN 0.6 mg/dL (0.0-1.0); TOTAL PROTEIN, SERUM 6.9 g/dL (6.4-8.3); UREA NITROGEN, BLOOD 24 mg/dL (8-21)
[2023-03-24] MEDS: LEVOTHYROXINE SODIUM 0.075 MG TABLET PO SCH (06:47)
[2023-03-24] MEDS: TIMOLOL MALEATE 0.5% OPHTHALMIC DROPS 5 ML LEFT EYE SCH (08:55)
[2023-03-24] MEDS: FUROSEMIDE 40 MG TABLET PO SCH (08:55)
[2023-03-24] MEDS: DIVALPROEX SODIUM 125 MG CAP.(DEPAKOTE SPRINKLE) PO SCH ×2 (08:55→21:14)
[2023-03-24] MEDS: LETROZOLE 2.5 MG TABLET (FEMARA) PO SCH (08:56)
[2023-03-24] MEDS: cefTRIAXone 1 GM in D5W 50 ML IV SCH (08:56)
[2023-03-24] MEDS ORDERED: MUPIROCIN 2% TOPICAL OINTMENT 22 GM NS ONE (17:00)
[2023-03-24] MEDS: LATANOPROST 2.5 ML DROPS (XALATAN) LEFT EYE SCH (21:00)
[2023-03-24] MEDS: LORazepam 1 MG TABLET PO PRN (21:15)
[2023-03-24] MEDS: FAMOTIDINE PF 20 MG/2 ML VIAL IVP SCH (22:16)
[2023-03-24] MEDS: MUPIROCIN 2% TOPICAL OINTMENT 22 GM NS SCH (22:17)
[2023-03-25] VITALS (11 sets, daily range): BP systolic 106–135; PULSE 61–83; RESP 16–20; TEMP 97.9–98.6; O2SAT 95–99
[2023-03-25] MEDS: IPRATROPIUM/ALBUTEROL SULFATE 3 ML AMPUL.NEB (DUONEB) INH SCH ×4 (01:30→20:30)
[2023-03-25] MEDS: LEVOTHYROXINE SODIUM 0.075 MG TABLET PO SCH (06:00)
[2023-03-25] MEDS: DIVALPROEX SODIUM 125 MG CAP.(DEPAKOTE SPRINKLE) PO SCH ×2 (09:09→22:00)
[2023-03-25] MEDS: FUROSEMIDE 40 MG TABLET PO SCH (09:10)
[2023-03-25] MEDS: MUPIROCIN 2% TOPICAL OINTMENT 22 GM NS SCH ×2 (09:11→22:00)
[2023-03-25] MEDS: TIMOLOL MALEATE 0.5% OPHTHALMIC DROPS 5 ML LEFT EYE SCH (09:12)
[2023-03-25] MEDS: LETROZOLE 2.5 MG TABLET (FEMARA) PO SCH (09:12)
[2023-03-25] MEDS: cefTRIAXone 1 GM in D5W 50 ML IV SCH (09:14)
[2023-03-25] MEDS: FAMOTIDINE PF 20 MG/2 ML VIAL IVP SCH (18:23)
[2023-03-25] MEDS: LORazepam 1 MG TABLET PO PRN (22:09)
[2023-03-26] VITALS (13 sets, daily range): BP systolic 112–122; PULSE 72–89; RESP 17–20; TEMP 97.7–98.4; O2SAT 92–100
[2023-03-26] MEDS: LATANOPROST 2.5 ML DROPS (XALATAN) LEFT EYE SCH ×2 (00:16→20:53)
[2023-03-26] MEDS: IPRATROPIUM/ALBUTEROL SULFATE 3 ML AMPUL.NEB (DUONEB) INH SCH ×4 (01:35→19:09)
[2023-03-26] MEDS: LEVOTHYROXINE SODIUM 0.075 MG TABLET PO SCH (06:52)
[2023-03-26] MEDS: DIVALPROEX SODIUM 125 MG CAP.(DEPAKOTE SPRINKLE) PO SCH ×2 (08:38→20:49)
[2023-03-26] MEDS: TIMOLOL MALEATE 0.5% OPHTHALMIC DROPS 5 ML LEFT EYE SCH (08:39)
[2023-03-26] MEDS: FUROSEMIDE 40 MG TABLET PO SCH (08:39)
[2023-03-26] MEDS: cefTRIAXone 1 GM in D5W 50 ML IV SCH (08:40)
[2023-03-26] MEDS: MUPIROCIN 2% TOPICAL OINTMENT 22 GM NS SCH ×2 (08:40→20:49)
[2023-03-26] MEDS: LETROZOLE 2.5 MG TABLET (FEMARA) PO SCH (08:41)
[2023-03-26] MEDS: LORazepam 1 MG TABLET PO PRN (12:57)
[2023-03-26] MEDS: FAMOTIDINE PF 20 MG/2 ML VIAL IVP SCH (18:28)
[2023-03-27] VITALS (8 sets, daily range): BP systolic 110–141; PULSE 73–88; RESP 18–20; TEMP 97.6–99; O2SAT 92–100
[2023-03-27] MEDS: LORazepam 1 MG TABLET PO PRN ×3 (01:05→23:32)
[2023-03-27] MEDS: IPRATROPIUM/ALBUTEROL SULFATE 3 ML AMPUL.NEB (DUONEB) INH SCH ×4 (01:38→19:56)
[2023-03-27] MEDS ORDERED: LEVOFLOXACIN 250 MG/D5W 50 ML IV SCH ×2 (02:30→09:00)
[2023-03-27] MEDS ORDERED: LEVOFLOXACIN 250 MG/D5W 50 ML IV ONE (05:34)
[2023-03-27 05:45] LABS: ALANINE AMINOTRANSFERASE 16 U/L (12-78); ALBUMIN 3.2 g/dL (3.4-4.8); ANION GAP 9 (5-15); ASPARTATE AMINOTRANSFERASE 18 U/L (10-37); CALCIUM 9.7 mg/dL (8.4-11.0); CARBON DIOXIDE 32 mmol/L (23-29); CHLORIDE 99 mmol/L (98-107); GLUCOSE 88 mg/dL (74-106); POTASSIUM 3.3 mmol/L (3.5-5.1); SODIUM SERUM 140 mmol/L (136-145); TOTAL BILIRUBIN 0.4 mg/dL (0.0-1.0); TOTAL PROTEIN, SERUM 6.4 g/dL (6.4-8.3); UREA NITROGEN, BLOOD 23 mg/dL (8-21)
[2023-03-27] MEDS: LEVOTHYROXINE SODIUM 0.075 MG TABLET PO SCH (06:49)
[2023-03-27] MEDS: DIVALPROEX SODIUM 125 MG CAP.(DEPAKOTE SPRINKLE) PO SCH (09:46)
[2023-03-27] MEDS: MUPIROCIN 2% TOPICAL OINTMENT 22 GM NS SCH (09:46)
[2023-03-27] MEDS: TIMOLOL MALEATE 0.5% OPHTHALMIC DROPS 5 ML LEFT EYE SCH (09:47)
[2023-03-27] MEDS: FUROSEMIDE 40 MG TABLET PO SCH (09:48)
[2023-03-27] MEDS: LETROZOLE 2.5 MG TABLET (FEMARA) PO SCH (09:48)
[2023-03-27] MEDS ORDERED: levoFLOXacin 250 MG TABLET PO SCH (10:00)
[2023-03-27] MEDS ORDERED: POTASSIUM CHLORIDE 20 MEQ TABLET.ER PO ONE (11:15)
[2023-03-27] MEDS ORDERED: FAMOTIDINE 20 MG TABLET PO ONE (19:45)
[2023-03-28] MEDS ORDERED: FAMOTIDINE 20 MG TABLET PO SCH (09:00)
== END 2023-03-27 23:43 | DRG 193 ==
LOC: SED 13:31 → STU 16:46 → SMU 03-26 14:58
PROVIDERS: ADMIT Internal Medicine; ATTEND Internal Medicine
DX: J18.9 Pneumonia, unspecified organism (principal); I50.33 Acute on chronic diastolic (congestive) heart failure; J96.91 Respiratory failure, unspecified with hypoxia; F03.B3 Unspecified dementia, moderate, with mood disturbance; N39.0 Urinary tract infection, site not specified; I24.89 Other forms of acute ischemic heart disease; I11.0 Hypertensive heart disease with heart failure; G40.909 Epilepsy, unspecified, not intractable, without status epilepticus; I35.0 Nonrheumatic aortic (valve) stenosis; R13.10 Dysphagia, unspecified; F31.9 Bipolar disorder, unspecified; E03.9 Hypothyroidism, unspecified; E78.5 Hyperlipidemia, unspecified; K21.9 Gastro-esophageal reflux disease without esophagitis; I50.9 Heart failure, unspecified; Z90.49 Acquired absence of other specified parts of digestive tract; Z90.11 Acquired absence of right breast and nipple; Z85.42 Personal history of malignant neoplasm of other parts of uterus; Z85.3 Personal history of malignant neoplasm of breast; Z74.01 Bed confinement status; Z79.899 Other long term (current) drug therapy; Z79.2 Long term (current) use of antibiotics; I25.2 Old myocardial infarction
CPT/HCPCS: 36415; 71045; 80048; 80053; 81000; 81001; 81015; 82009; 82550; 83605; 83735; 83880; 84100; 84439; 84443; 84484; 85025; 85610-TC; 85730-TC; 87040; 87081; 87086; 92610-GN; 93005; 94640; 94760; 99291; G0378; J0696; J1940; J1956; J3490; J7060